=== PATIENT | male | born 1975 ===

== ENCOUNTER 2020-07-18 15:42 | Emergency (ER) | payer SELFPAY ==
--- NOTE | 2020-07-18 17:01 | EDM.PDOC ---
ED HPI GENERAL MEDICAL PROBLEM - General Chief Complaint: Respiratory Problem Stated Complaint: COVID+ CAN'T BREATHE Time Seen by Provider: 07/18/20 16:20 Source of Information: Reports: Patient, RN, RN Notes Reviewed History Limitations: Reports: No Limitations - History of Present Illness INITIAL COMMENTS - FREE TEXT/NARRATIVE: Patient presents to the ED via personal vehicle with complaints of shortness of breath and chest pain. The patient states he was diagnosed with COVID on 07/14/20 following symptoms of nausea and muscle aches that began on 07/13/20. He reports his additional COVID symptoms have included chills, headache, fatigue, cough, sore throat, and nausea. He states he grew concerned when he developed chest pain with breathing and subsequent shortness of breath yesterday. He states these symptoms have not progressed. The chest pain is localized and does not radiate. He denies dyspepsia, palpitations, vomiting, diarrhea, melena, or hematochezia. He states he has taken OTC medications for his muscles aches and cough. He reports a history of hypertension, but denies a history of respiratory disease. He denies alcohol, tobacco, or recreational drug use. - Related Data Allergies Allergy/AdvReac Type Severity Reaction Status Date / Time No Known Allergies Allergy Verified 07/18/20 16:08 Home Meds: Home Meds Aspirin [Halfprin] 81 mg PO DAILY 07/18/20 [History] Lisinopril/Hydrochlorothiazide [Lisinopril-HCTZ 10-12.5 MG] 1 tab PO DAILY 07/18/20 [History] Rosuvastatin [Crestor] 10 mg PO DAILY 07/18/20 [History] Past Medical History Cardiovascular History: Reports: Hypertension Social & Family History - Tobacco Use Tobacco Use Status *Q: Never Tobacco User Second Hand Smoke Exposure: No - Recreational Drug Use Recreational Drug Use: No ED ROS GENERAL - Review of Systems Review Of Systems: Comprehensive ROS is negative, except as noted in HPI. ED EXAM, GENERAL - Physical Exam Exam: See Below Exam Limited By: No Limitations General Appearance: Alert, No Apparent Distress Eye Exam: Bilateral Eye: EOMI, Normal Inspection, PERRL (4mm) Ears: Normal External Exam, Normal Canal, Hearing Grossly Normal, Normal TMs Ear Exam: Bilateral Ear: Auricle Normal, Canal Normal, TM normal Nose: Normal Inspection, Nasal Tenderness, Nasal Swelling, Nasal Drainage Throat/Mouth: Normal Inspection, Normal Voice, No Airway Compromise Respiratory/Chest: No Respiratory Distress, Lungs Clear, Normal Breath Sounds, No Accessory Muscle Use, Chest Non-Tender Cardiovascular: Normal Peripheral Pulses, Regular Rate, Rhythm, No Edema, No Gallop, No JVD, No Murmur, No Rub Peripheral Pulses: 2+: Radial (L), Radial (R), Dorsalis Pedis (L), Dorsalis Pedis (R) GI/Abdominal: Normal Bowel Sounds, Soft, Non-Tender, No Distention, No Mass, Pelvis Stable (Male) Exam: Deferred Rectal (Males) Exam: Deferred Back Exam: Normal Inspection, Full Range of Motion Extremities: Normal Inspection, Normal Range of Motion, Non-Tender, No Pedal Edema, Normal Capillary Refill Neurological: Alert, Oriented, CN II-XII Intact, Normal Cognition, Normal Gait, No Motor/Sensory Deficits Psychiatric: Normal Affect, Normal Mood Skin Exam: Warm, Dry, Intact, Normal Color, No Rash. No: Ecchymosis, Erythema, Jaundice, Mottled, Pallor, Petechiae #1 Interpretation EKG Date: 07/18/20 Time: 16:51 Rhythm: NSR Rate (Beats/Min): 81 [place]: Normal P-Wave: Present QRS: Normal ST-T: Normal QT: Normal Comparison: NA - No Prior EKG EKG Interpretation Comments: NSR; No evidence of acute ischemia Course - Vital Signs Last Recorded V/S: Last Vital Signs Temp 97.8 F 07/18/20 15:59 Pulse 99 07/18/20 15:59 Resp 18 07/18/20 15:59 BP 142/82 H 07/18/20 15:59 Pulse Ox 97 07/18/20 15:59 - Orders/Labs/Meds Orders: Active Orders 24 hr Category Date Time Status EKG Documentation Completion [RC] STAT Care 07/18/20 16:43 Active Labs: Laboratory Tests 07/18/20 07/18/20 07/18/20 Range/Units 17:02 17:02 17:02 WBC 4.5 L (5.0-10.0) 10^3/uL RBC 5.50 (4.6-6.2) 10^6/uL Hgb 16.5 (14.0-18.0) g/dL Hct 46.7 (40.0-54.0) % MCV 84.9 (80-100) fL MCH 30.0 (27.0-34.0) pg MCHC 35.3 H (33.0-35.0) g/dL Plt Count 159 (150-450) 10^3/uL Neut % (Auto) 70.7 (42.2-75.2) % Lymph % (Auto) 20.9 (20.5-50.1) % [place] % (Auto) 8.2 H (2-8) % Eos % (Auto) 0.2 L (1.0-3.0) % Baso % (Auto) 0.0 (0.0-1.0) % D-Dimer, Quantitative < 100 (0-400) ng/mL Sodium 141 (136-145) mmol/L Potassium 3.1 L (3.5-5.1) mmol/L Chloride 100 (98-107) mmol/L Carbon Dioxide 28 (21-32) mmol/L Anion Gap 16.1 H (7-13) mEq/L BUN 11 (7-18) mg/dL Creatinine 1.01 (0.70-1.30) mg/dL Est Cr Clr Drug Dosing 91.58 mL/min Estimated GFR (MDRD) > 60 BUN/Creatinine Ratio 10.9 (No establ ref range) Glucose 117 H (74-99) mg/dL Lactic Acid (0.4-2.0) mmol/L Calcium 9.1 (8.5-10.1) mg/dL Magnesium 2.1 (1.8-2.4) mg/dL Total Bilirubin 0.4 (0.2-1.0) mg/dL AST 27 (15-37) U/L ALT 63 (16-63) U/L Alkaline Phosphatase 97 (46-116) U/L Troponin I < 0.017 (0.000-0.056) ng/mL C-Reactive Protein 1.1 H (0.0-0.9) mg/dL Total Protein 8.2 (6.4-8.2) g/dL Albumin 4.1 (3.4-5.0) g/dL Globulin 4.1 Albumin/Globulin Ratio 1.0 /02/28 Range/Units 17:02 WBC (5.0-10.0) 10^3/uL RBC (4.6-6.2) 10^6/uL Hgb (14.0-18.0) g/dL Hct (40.0-54.0) % MCV (80-100) fL MCH (27.0-34.0) pg MCHC (33.0-35.0) g/dL Plt Count (150-450) 10^3/uL Neut % (Auto) (42.2-75.2) % Lymph % (Auto) (20.5-50.1) % [place] % (Auto) (2-8) % Eos % (Auto) (1.0-3.0) % Baso % (Auto) (0.0-1.0) % D-Dimer, Quantitative (0-400) ng/mL Sodium (136-145) mmol/L Potassium (3.5-5.1) mmol/L Chloride (98-107) mmol/L Carbon Dioxide (21-32) mmol/L Anion Gap (7-13) mEq/L BUN (7-18) mg/dL Creatinine (0.70-1.30) mg/dL Est Cr Clr Drug Dosing mL/min Estimated GFR (MDRD) BUN/Creatinine Ratio (No establ ref range) Glucose (74-99) mg/dL Lactic Acid 1.2 (0.4-2.0) mmol/L Calcium (8.5-10.1) mg/dL Magnesium (1.8-2.4) mg/dL Total Bilirubin (0.2-1.0) mg/dL AST (15-37) U/L ALT (16-63) U/L Alkaline Phosphatase (46-116) U/L Troponin I (0.000-0.056) ng/mL C-Reactive Protein (0.0-0.9) mg/dL Total Protein (6.4-8.2) g/dL Albumin (3.4-5.0) g/dL Globulin Albumin/Globulin Ratio - Radiology Interpretation Free Text/Narrative:: [facility] [place] [facility] Final Radiology Report Call: [phone] assistance Online chat: [email or web address] Name: VALERIA TATUM Age: 45Years M Date: 07/18/2020 SSN: -- : [id number] Study: CR CHEST 1V FRONTAL Requesting Physician: Kiarra Hawk Images: 1 Addl Studies: Provided Clinical History: Shortness of breath; COVID+ Contrast: Contrast Medium: Contrast Amount: Contrast Method: CONFIDENTIALITY STATEMENT This report is intended only for use by the referring physician, and only in accordance with law. If you received this in error, call [phone]. Page 1 of 1 PROCEDURE INFORMATION: Exam: XR Chest, 1 View Exam date and time: 07/18/2020 6:20 PM Age: 45 years old Clinical indication: Shortness of breath; Additional info: Shortness of breath; Covid+ TECHNIQUE: Imaging protocol: XR of the chest Views: 1 view. COMPARISON: No relevant prior studies available. FINDINGS: Lungs: Unremarkable. No consolidation. Pleural space: Unremarkable. No pleural effusion. No pneumothorax. Heart/Mediastinum: Unremarkable. No cardiomegaly. Bones/joints: Unremarkable. IMPRESSION: No acute findings. Thank you for allowing us to participate in the care of your patient. Dictated and Authenticated by: Cordell Robb DO 07/18/2020 6:41 PM Central Time ([place] & [place]) - Re-Assessments/Exams Free Text/Narrative Re-Assessment/Exam: 07/18/20 CBC and CMP unremarkable for acute processes. D-Dimer WNL. CXR unremarkable for acute processes. Will treat new onset shortness of breath empirically with dexamethasone and azithromycin. Departure - Departure Time of Disposition: 18:45 Disposition: Home, Self-Care 01 Condition: Good Clinical Impression: Shortness of breath, Pleurisy, COVID-19 virus infection - Discharge Information *PRESCRIPTION DRUG MONITORING PROGRAM REVIEWED*: Not Applicable *COPY OF PRESCRIPTION DRUG MONITORING REPORT IN PATIENT YENI: Not Applicable Instructions: COVID-19 Frequently Asked Questions, COVID-19: How to Protect Yourself and Others - CDC, Prevent the Spread of COVID-19 if You Are Sick - CDC Forms: ED Department Discharge Additional Instructions: Rx: Azithromycin Rx: Dexamethasone 1.) You may take acetaminophen (Tylenol) 650mg every six hours. You may take ibuprofen (Advil/Motrin) 400mg every six hours. You may stagger these medications so you are taking a dose of medicine every three hours. 2.) Drink plenty of fluids to stay hydrated. 3.) Eat small, frequent meals to avoid nausea. 4.) Continue to follow [facility] Department guidelines regarding quarantine. Sepsis Event Note (ED) - Evaluation Sepsis Screening Result: No Definite Risk - Focused Exam Vital Signs: Vital Signs Temp Pulse Resp BP Pulse Ox 07/18/20 15:59 97.8 F 99 18 142/82 H 97 - My Orders Last 24 Hours: My Active Orders 07/18/20 16:43 EKG Documentation Completion [RC] STAT - Assessment/Plan Last 24 Hours: My Active Orders 07/18/20 16:43 EKG Documentation Completion [RC] STAT
[2020-07-18 17:43] LABS: ANION GAP 16.1 mEq/L (7-13); CHLORIDE,CL 100 mmol/L (98-107); SODIUM,NA 141 mmol/L (136-145)
--- NOTE | 2020-07-18 18:42 | CR ---
PROCEDURE INFORMATION: Exam: XR Chest, 1 View Exam date and time: 07/18/2020 6:20 PM Age: 45 years old Clinical indication: Shortness of breath; Additional info: Shortness of breath; Covid+ TECHNIQUE: Imaging protocol: XR of the chest Views: 1 view. COMPARISON: No relevant prior studies available. FINDINGS: Lungs: Unremarkable. No consolidation. Pleural space: Unremarkable. No pleural effusion. No pneumothorax. Heart/Mediastinum: Unremarkable. No cardiomegaly. Bones/joints: Unremarkable. IMPRESSION: No acute findings.
[2020-07-18] MEDS ORDERED: Dexamethasone 4 MG/ML SDV IM ONE (18:48)
== END 2020-07-18 19:28 | disposition home or self-care (01) ==
LOC: DL.ED 15:42
DX: U07.1 COVID-19 (principal); R09.1 Pleurisy; I10 Essential (primary) hypertension; Z79.82 Long term (current) use of aspirin; Z79.899 Other long term (current) drug therapy
CPT/HCPCS: 36415; 71045; 80053; 83605; 83735; 84484; 85025; 85379; 86140; 93005; 93010; 96372; 99284; 99285; J1100

== ENCOUNTER 2020-07-22 15:31 | Emergency (ER) | payer SELFPAY ==
--- NOTE | 2020-07-22 16:20 | EDM.PDOC ---
<Marvin Tapia Chapito - Last Filed: 07/22/20 18:19> ED HPI GENERAL MEDICAL PROBLEM - General Chief Complaint: Respiratory Problem Stated Complaint: COVID+ DIFFICULTY BREATHING AND DIZZY Time Seen by Provider: 07/22/20 15:45 Source of Information: Reports: Patient History Limitations: Reports: No Limitations - History of Present Illness INITIAL COMMENTS - FREE TEXT/NARRATIVE: 45 y/o M c/o chest pressure and increased sob starting 11 pm yesterday. Pt was diagnosed with covid 8 days ago and was treated with dexamethasone and Zithromax. Yesterday while at rest the pt developed pressure in his left chest and increased sob. Denies mcgee, vision problems, abd pn, nausea, vomiting, diarrhea, drugs, etoh, extremity pain, recent trauma. Onset: Other (yesterday about 11 pm) Duration: Hour(s): Location: Reports: Chest Quality: Reports: Pressure Severity: Moderate Improves with: Reports: None Worsens with: Reports: Movement Associated Symptoms: Reports: No Other Symptoms - Related Data Allergies Allergy/AdvReac Type Severity Reaction Status Date / Time No Known Allergies Allergy Verified 07/22/20 15:44 Home Meds: Home Meds Aspirin [Halfprin] 81 mg PO DAILY 07/18/20 [History] Lisinopril/Hydrochlorothiazide [Lisinopril-HCTZ 10-12.5 MG] 1 tab PO DAILY 07/18/20 [History] Rosuvastatin [Crestor] 10 mg PO DAILY 07/18/20 [History] Past Medical History Cardiovascular History: Reports: High Cholesterol, Hypertension Social & Family History - Tobacco Use Tobacco Use Status *Q: Never Tobacco User - Recreational Drug Use Recreational Drug Use: No ED ROS GENERAL - Review of Systems Review Of Systems: Comprehensive ROS is negative, except as noted in HPI. ED EXAM, GENERAL - Physical Exam Exam: See Below Exam Limited By: No Limitations General Appearance: Alert, WD/WN, No Apparent Distress Eye Exam: Bilateral Eye: PERRL Ears: Normal External Exam, Normal Canal, Hearing Grossly Normal, Normal TMs Ear Exam: Bilateral Ear: Auricle Normal, Canal Normal, TM normal Nose: Normal Inspection, Normal Mucosa, No Blood Throat/Mouth: Normal Inspection, Normal Lips, Normal Teeth, Normal Gums, Normal Oropharynx, Normal Voice, No Airway Compromise Head: Atraumatic, Normocephalic Neck: Normal Inspection, Supple, Non-Tender, Full Range of Motion Respiratory/Chest: Lungs Clear, Other (tachypnea ) Cardiovascular: Normal Peripheral Pulses, Regular Rate, Rhythm, No Edema, No Gallop, No JVD, No Murmur, No Rub GI/Abdominal: Soft, Non-Tender (Male) Exam: Deferred Rectal (Males) Exam: Deferred Extremities: Normal Inspection, Normal Range of Motion, Non-Tender, Normal Capillary Refill, No Pedal Edema Neurological: Alert, Oriented, CN II-XII Intact, Normal Cognition, Normal Gait, Normal Reflexes, No Motor/Sensory Deficits Psychiatric: Normal Affect, Normal Mood Skin Exam: Warm, Dry, Intact, Normal Color, No Rash Departure - Departure Disposition: Home, Self-Care 01 Clinical Impression: COVID-19 virus infection - Discharge Information Instructions: Shortness of Breath, Adult, [id number], COVID-19 Forms: ED Department Discharge Additional Instructions: Use Albuterol Inhaler 2 puffs every 4 hours as needed. Over the counter Vitamin D supplement (D3): Take 4000 or 5000IU by mouth once daily with a meal. Check your vitamin D lab level in one month. Rx: Promethazine Codeine Syrup Sepsis Event Note (ED) - Evaluation Sepsis Screening Result: No Definite Risk <Ike De Guzman - Last Filed: 07/22/20 18:22> Course - Vital Signs Last Recorded V/S: Last Vital Signs Temp 98.5 F 07/22/20 15:53 Pulse 97 07/22/20 15:53 Resp 16 07/22/20 15:53 BP 152/85 H 07/22/20 15:53 Pulse Ox 96 07/22/20 15:53 - Orders/Labs/Meds Orders: Active Orders 24 hr Category Date Time Status EKG Documentation Completion [RC] STAT Care 07/22/20 16:23 Active Peripheral IV Care [RC] . DIRECTED Care 07/22/20 16:24 Active Sodium Chloride 0.9% [Saline Flush] Med 07/22/20 16:22 Active 10 ml FLUSH ASDIRECTED PRN Peripheral IV Insertion Adult [OM.PC] Stat Oth 07/22/20 16:22 Ordered Medication Orders Sodium Chloride (Saline Flush) 10 ml FLUSH ASDIRECTED PRN PRN Reason: Keep Vein Open Last Admin: 07/22/20 16:46 Dose: 10 ml Documented by: LEO Labs: Laboratory Tests 07/22/20 07/22/20 07/22/20 Range/Units 16:44 16:44 16:44 WBC 9.7 (5.0-10.0) 10^3/uL RBC 5.58 (4.6-6.2) 10^6/uL Hgb 16.4 (14.0-18.0) g/dL Hct 46.5 (40.0-54.0) % MCV 83.3 (80-100) fL MCH 29.4 (27.0-34.0) pg MCHC 35.3 H (33.0-35.0) g/dL Plt Count 216 (150-450) 10^3/uL Neut % (Auto) 90.3 H (42.2-75.2) % Lymph % (Auto) 6.4 L (20.5-50.1) % [place] % (Auto) 2.8 (2-8) % Eos % (Auto) 0.1 L (1.0-3.0) % Baso % (Auto) 0.4 (0.0-1.0) % PT 10.3 (9.0-12.0) SEC INR 1.1 (0.9-1.2) APTT 21.4 L (22.0-34.0) SEC D-Dimer, Quantitative 138 (0-400) ng/mL Sodium 139 (136-145) mmol/L Potassium 3.2 L (3.5-5.1) mmol/L Chloride 98 (98-107) mmol/L Carbon Dioxide 28 (21-32) mmol/L Anion Gap 16.2 H (7-13) mEq/L BUN 13 (7-18) mg/dL Creatinine 1.06 (0.70-1.30) mg/dL Est Cr Clr Drug Dosing 89.86 mL/min Estimated GFR (MDRD) > 60 BUN/Creatinine Ratio 12.3 (No establ ref range) Glucose 180 H (74-99) mg/dL Calcium 9.3 (8.5-10.1) mg/dL Ferritin (26-388) mg/mL Total Bilirubin 0.3 (0.2-1.0) mg/dL AST 19 (15-37) U/L ALT 71 H (16-63) U/L Alkaline Phosphatase 87 (46-116) U/L Lactate Dehydrogenase 129 (85-227) U/L Troponin I < 0.017 (0.000-0.056) ng/mL C-Reactive Protein < 0.2 (0.0-0.9) mg/dL Total Protein 8.3 H (6.4-8.2) g/dL Albumin 4.2 (3.4-5.0) g/dL Globulin 4.1 Albumin/Globulin Ratio 1.0 07/22/20 Range/Units 16:44 WBC (5.0-10.0) 10^3/uL RBC (4.6-6.2) 10^6/uL Hgb (14.0-18.0) g/dL Hct (40.0-54.0) % MCV (80-100) fL MCH (27.0-34.0) pg MCHC (33.0-35.0) g/dL Plt Count (150-450) 10^3/uL Neut % (Auto) (42.2-75.2) % Lymph % (Auto) (20.5-50.1) % [place] % (Auto) (2-8) % Eos % (Auto) (1.0-3.0) % Baso % (Auto) (0.0-1.0) % PT (9.0-12.0) SEC INR (0.9-1.2) APTT (22.0-34.0) SEC D-Dimer, Quantitative (0-400) ng/mL Sodium (136-145) mmol/L Potassium (3.5-5.1) mmol/L Chloride (98-107) mmol/L Carbon Dioxide (21-32) mmol/L Anion Gap (7-13) mEq/L BUN (7-18) mg/dL Creatinine (0.70-1.30) mg/dL Est Cr Clr Drug Dosing mL/min Estimated GFR (MDRD) BUN/Creatinine Ratio (No establ ref range) Glucose (74-99) mg/dL Calcium (8.5-10.1) mg/dL Ferritin 133 (26-388) mg/mL Total Bilirubin (0.2-1.0) mg/dL AST (15-37) U/L ALT (16-63) U/L Alkaline Phosphatase (46-116) U/L Lactate Dehydrogenase (85-227) U/L Troponin I (0.000-0.056) ng/mL C-Reactive Protein (0.0-0.9) mg/dL Total Protein (6.4-8.2) g/dL Albumin (3.4-5.0) g/dL Globulin Albumin/Globulin Ratio Meds: Medications Generic Name Dose Route Start Last Admin Trade Name Freq PRN Reason Stop Dose Admin Sodium Chloride 10 ml 07/22/20 16:22 07/22/20 16:46 Saline Flush FLUSH 10 ml ASDIRECTED PRN Administration Keep Vein Open Discontinued Medications Generic Name Dose Route Start Last Admin Trade Name Freq PRN Reason Stop Dose Admin Albuterol 6.7 gm 07/22/20 18:16 Proventil Hfa INH 07/22/20 18:17 ONETIME ONE Promethazine HCl/Codeine 10 ml 07/22/20 18:16 Phenergan With Codeine PO 07/22/20 18:17 ONETIME ONE - Radiology Interpretation Free Text/Narrative:: CT Chest: normal per Rad. report. - Re-Assessments/Exams Free Text/Narrative Re-Assessment/Exam: 07/22/20 17:09 I personally performed or re-performed the physical examination and medical decision making. I have verified all student documentation or findings, including history, physical exam and/or medical decision making. Departure - Departure Time of Disposition: 18:17 Condition: Good - Discharge Information *PRESCRIPTION DRUG MONITORING PROGRAM REVIEWED*: Not Applicable *COPY OF PRESCRIPTION DRUG MONITORING REPORT IN PATIENT YENI: Not Applicable Sepsis Event Note (ED) - Focused Exam Vital Signs: Vital Signs Temp Pulse Resp BP Pulse Ox 07/22/20 15:53 98.5 F 97 16 152/85 H 96
[2020-07-22] MEDS ORDERED: Sodium Chloride 0.9% 10 ML Syringe FLUSH PRN (16:22)
[2020-07-22 17:13] LABS: ANION GAP 16.2 mEq/L (7-13); CHLORIDE,CL 98 mmol/L (98-107); SODIUM,NA 139 mmol/L (136-145)
[2020-07-22 17:14] LABS: PTT,PARTIAL THROMBOPLSTIN TIME 21.4 SEC (22.0-34.0)
--- NOTE | 2020-07-22 18:00 | CT ---
PROCEDURE INFORMATION: Exam: CT Chest Without Contrast; Diagnostic Exam date and time: 07/22/2020 5:33 PM Age: 45 years old Clinical indication: Other: Increased chest pressure TECHNIQUE: Imaging protocol: Diagnostic computed tomography of the chest without contrast. Radiation optimization: All CT scans at this facility use at least one of these dose optimization techniques: automated exposure control; mA and/or kV adjustment per patient size (includes targeted exams where dose is matched to clinical indication); or iterative reconstruction. COMPARISON: CR Chest 1V Frontal 07/18/2020 6:20 PM FINDINGS: Lungs: Unremarkable. No consolidation. No masses. Pleural space: Unremarkable. No pneumothorax. No pleural effusion. Heart: Unremarkable. No cardiomegaly. No pericardial effusion. Aorta: Unremarkable. No aortic aneurysm. Lymph nodes: Unremarkable. No enlarged lymph nodes. Bones/joints: Unremarkable. No acute fracture. Soft tissues: Nonspecific calcification or small calcific lesion in the left kidney of uncertain etiology. IMPRESSION: No acute cardiopulmonary findings. Incompletely visualized left renal calcification of uncertain etiology.
[2020-07-22] MEDS ORDERED: Codeine/Promethazine 10-6.25 MG/5 ML Syrup 5 ML UD Cup PO ONE (18:16)
[2020-07-22] MEDS ORDERED: Albuterol 6.7 GM Inhaler INH ONE (18:16)
== END 2020-07-22 18:32 | disposition home or self-care (01) ==
LOC: DL.ED 15:31
DX: U07.1 COVID-19 (principal); E78.00 Pure hypercholesterolemia, unspecified; I10 Essential (primary) hypertension; Z79.82 Long term (current) use of aspirin; Z79.899 Other long term (current) drug therapy
CPT/HCPCS: 36415; 71250; 80053; 82728; 83615; 84484; 85025; 85379; 85610; 85730; 86140; 93005; 99283; 99285; A9270

== ENCOUNTER 2020-07-24 15:21 | Inpatient (IN) | payer OTHER ==
--- NOTE | 2020-07-24 16:19 | EDM.PDOC ---
ED HPI GENERAL MEDICAL PROBLEM - General Chief Complaint: General Stated Complaint: COVID POSSITIVE, TESTED 13 DAYS AGO. Time Seen by Provider: 07/24/20 16:00 Source of Information: Reports: Patient, Old Records, RN, RN Notes Reviewed History Limitations: Reports: No Limitations - History of Present Illness INITIAL COMMENTS - FREE TEXT/NARRATIVE: Patient presents to the ED via personal vehicle with complaints of shortness of breath and chest pain. The was diagnosed with COVID on 07/14/20 following symptoms of muscle aches and fatigue; he subsequently developed shortness of br eath and chest pain which prompted him to present to this ED on 07/18/20 and 07/22/20. The patient has been treated with Dexamethasone, Azithromycin, Phenergan with Codeine, and an Albuterol MDI. He states the pain in his chest and back continues, as well as the fatigue, muscle aches, and cough. He states he is concerned as he has not improved despite supportive cares and reported he "...just wants to slit my wrists." The patient states he has not eaten or drank fluids in >24hrs. He denies fever, shaking chills, vision changes, palpitations, dyspepsia, nausea, abdominal pain, vomiting, diarrhea, melena, or hematochezia. Left Chest Pain Score (Numeric/FACES): 10 - Related Data Allergies Allergy/AdvReac Type Severity Reaction Status Date / Time No Known Allergies Allergy Verified 07/24/20 15:57 Home Meds: Home Meds Aspirin [Halfprin] 81 mg PO DAILY 07/18/20 [History] Lisinopril/Hydrochlorothiazide [Lisinopril-HCTZ 10-12.5 MG] 1 tab PO DAILY 07/18/20 [History] Rosuvastatin [Crestor] 10 mg PO DAILY 07/18/20 [History] Albuterol [Take Home: Albuterol 18 GM, 1 INH Pack] 2 puff INH Q4H PRN 07/24/20 [History] Azithromycin 500 mg PO DAILY 07/24/20 [History] Doxycycline [Doxycycline Hyclate] 100 mg PO BID 07/24/20 [History] predniSONE [Prednisone] 20 mg PO DAILY 07/24/20 [History] Past Medical History - Past Health History Medical/Surgical History: Denies Medical/Surgical History Cardiovascular History: Reports: High Cholesterol, Hypertension Social & Family History - Tobacco Use Tobacco Use Status *Q: Never Tobacco User - Recreational Drug Use Recreational Drug Use: No ED ROS GENERAL - Review of Systems Review Of Systems: Comprehensive ROS is negative, except as noted in HPI. ED EXAM, GENERAL - Physical Exam Exam: See Below Exam Limited By: No Limitations General Appearance: Alert, No Apparent Distress, Thin Eye Exam: Bilateral Eye: EOMI, Normal Inspection, PERRL (3mm) Ears: Normal External Exam, Normal Canal, Hearing Grossly Normal, Normal TMs Ear Exam: Bilateral Ear: Auricle Normal, Canal Normal, TM normal Nose: Normal Inspection. No: Nasal Tenderness, Nasal Swelling, Nasal Drainage Throat/Mouth: Normal Inspection, Normal Lips, Normal Teeth, Normal Gums, Normal Voice, No Airway Compromise Head: Atraumatic, Normocephalic Neck: Normal Inspection, Supple, Non-Tender, Full Range of Motion. No: Lymphad enopathy (L), Lymphadenopathy (R) Respiratory/Chest: No Respiratory Distress, Lungs Clear, Normal Breath Sounds, Chest Non-Tender, Accessory Muscle Use. No: Crackles, Rales, Rhonchi, Wheezing, Stridor, Pleural Rub Cardiovascular: Normal Peripheral Pulses, Regular Rate, Rhythm, No Edema, No Gallop, No JVD, No Murmur, No Rub Peripheral Pulses: 2+: Radial (L), Radial (R), Dorsalis Pedis (L), Dorsalis Pedis (R) GI/Abdominal: Normal Bowel Sounds, Soft, Non-Tender, No Distention, No Mass, Pelvis Stable (Male) Exam: Deferred Rectal (Males) Exam: Deferred Back Exam: Normal Inspection, Full Range of Motion. No: CVA Tenderness (L), CVA Tenderness (R) Extremities: Normal Inspection, Normal Range of Motion, Non-Tender, Normal Capillary Refill, No Pedal Edema Neurological: Alert, Oriented, CN II-XII Intact, Normal Cognition, Normal Gait, No Motor/Sensory Deficits Psychiatric: Depressed Mood, Flat Affect Skin Exam: Warm, Dry, Intact, Normal Color, No Rash. No: Ecchymosis, Erythema, Jaundice, Mottled, Pallor, Petechiae Course - Vital Signs Last Recorded V/S: Last Vital Signs Temp 100.5 F 07/25/20 11:14 Pulse 72 07/25/20 11:14 Resp 20 07/25/20 11:14 BP 124/72 07/25/20 11:14 Pulse Ox 99 07/25/20 11:14 - Orders/Labs/Meds Orders: Medication Orders Acetaminophen (Tylenol) 650 mg PO Q4H PRN PRN Reason: Pain (Mild 1-3)/fever Dexamethasone (Decadron) 6 mg IVPUSH DAILY@1999 [facility] Last Admin: 07/24/20 20:52 Dose: 6 mg Documented by: DEZ Docusate Sodium (Colace) 100 mg PO BID PRN PRN Reason: Constipation Heparin Sodium (Porcine) (Heparin Sodium) 5,000 units SUBCUT Q8HR [facility] Last Admin: 07/25/20 04:59 Dose: 5,000 units Documented by: Admin: 07/24/20 21:54 Dose: 5,000 units Documented by: DEZ Potassium Chloride/Sodium Chloride (Normal Saline With 20 Meq Kcl) 1,000 mls @ 150 mls/hr IV ASDIRECTED [facility] Last Admin: 07/25/20 08:30 Dose: 150 mls/hr Documented by: KARON Remdesivir 200 mg/ Sodium (Chloride) 250 mls @ 250 mls/hr IV ONETIME ONE Stop: 07/25/20 13:59 Remdesivir 100 mg/ Sodium (Chloride) 100 mls @ 100 mls/hr IV Q24H [facility] Stop: 07/29/20 09:59 Influenza Virus Vaccine (Pharmacy To Dose - Influenza Vaccine) 1 each IM DAILY PRN PRN Reason: discharge Lorazepam (Ativan) 1 mg PO Q6H PRN PRN Reason: Anxiety Ondansetron HCl (Zofran Odt) 4 mg PO Q6H PRN PRN Reason: nausea, able to take PO Ondansetron HCl (Zofran) 4 mg IVPUSH Q6H PRN PRN Reason: Nausea/Vomiting Sodium Chloride (Saline Flush) 10 ml FLUSH ASDIRECTED PRN PRN Reason: Keep Vein Open Sodium Chloride (Saline Flush) 30 ml FLUSH DAILY PRN PRN Reason: Flush Zolpidem Tartrate (Ambien) 5 mg PO BEDTIME PRN PRN Reason: Sleep Labs: Laboratory Tests 07/24/20 07/24/20 07/24/20 Range/Units 16:22 16:22 16:22 WBC 9.6 (5.0-10.0) 10^3/uL RBC 5.18 (4.6-6.2) 10^6/uL Hgb 15.5 (14.0-18.0) g/dL Hct 43.2 (40.0-54.0) % MCV 83.4 (80-100) fL MCH 29.9 (27.0-34.0) pg MCHC 35.9 H (33.0-35.0) g/dL Plt Count 207 (150-450) 10^3/uL Neut % (Auto) 90.1 H (42.2-75.2) % Lymph % (Auto) 5.3 L (20.5-50.1) % [place] % (Auto) 4.4 (2-8) % Eos % (Auto) 0.0 L (1.0-3.0) % Baso % (Auto) 0.2 (0.0-1.0) % Add Manual Diff Yes Neutrophils % (Manual) 82 H (42-75) % Band Neutrophils % 2 % Lymphocytes % (Manual) 10 L (20-50) % Monocytes % (Manual) 6 (2-8) % PT 10.8 (9.0-12.0) SEC INR 1.1 (0.9-1.2) APTT 22.3 (22.0-34.0) SEC D-Dimer, Quantitative 582 H (0-400) ng/mL Sodium 138 (136-145) mmol/L Potassium 2.9 L (3.5-5.1) mmol/L Chloride 100 (98-107) mmol/L Carbon Dioxide 24 (21-32) mmol/L Anion Gap 16.9 H (7-13) mEq/L BUN 15 (7-18) mg/dL Creatinine 1.14 (0.70-1.30) mg/dL Est Cr Clr Drug Dosing 83.55 mL/min Estimated GFR (MDRD) > 60 BUN/Creatinine Ratio 13.2 (No establ ref range) Glucose 166 H (74-99) mg/dL Lactic Acid (0.4-2.0) mmol/L Calcium 8.8 (8.5-10.1) mg/dL Magnesium 1.8 (1.8-2.4) mg/dL Total Bilirubin 0.4 (0.2-1.0) mg/dL AST 33 (15-37) U/L ALT 86 H (16-63) U/L Alkaline Phosphatase 82 (46-116) U/L Troponin I < 0.017 (0.000-0.056) ng/mL C-Reactive Protein 0.2 (0.0-0.9) mg/dL Total Protein 7.1 (6.4-8.2) g/dL Albumin 3.7 (3.4-5.0) g/dL Globulin 3.4 Albumin/Globulin Ratio 1.1 TSH, Ultra Sensitive (0.36-3.74) uIU/mL Urine Color (YELLOW) Urine Appearance (CLEAR) Urine pH (5.0-9.0) Ur Specific [place] (1.005-1.030) Urine Protein (NEGATIVE) Urine Glucose (UA) (NEGATIVE) Urine Ketones (NEGATIVE) Urine Occult Blood (NEGATIVE) Urine Nitrite (NEGATIVE) Urine Bilirubin (NEGATIVE) Urine Urobilinogen (0.2-1.0) mg/dL Ur Leukocyte Esterase (NEGATIVE) 07/24/20 07/24/20 07/24/20 Range/Units 16:22 16:22 16:43 WBC (5.0-10.0) 10^3/uL RBC (4.6-6.2) 10^6/uL Hgb (14.0-18.0) g/dL Hct (40.0-54.0) % MCV (80-100) fL MCH (27.0-34.0) pg MCHC (33.0-35.0) g/dL Plt Count (150-450) 10^3/uL Neut % (Auto) (42.2-75.2) % Lymph % (Auto) (20.5-50.1) % [place] % (Auto) (2-8) % Eos % (Auto) (1.0-3.0) % Baso % (Auto) (0.0-1.0) % Add Manual Diff Neutrophils % (Manual) (42-75) % Band Neutrophils % % Lymphocytes % (Manual) (20-50) % Monocytes % (Manual) (2-8) % PT (9.0-12.0) SEC INR (0.9-1.2) APTT (22.0-34.0) SEC D-Dimer, Quantitative (0-400) ng/mL Sodium (136-145) mmol/L Potassium (3.5-5.1) mmol/L Chloride (98-107) mmol/L Carbon Dioxide (21-32) mmol/L Anion Gap (7-13) mEq/L BUN (7-18) mg/dL Creatinine (0.70-1.30) mg/dL Est Cr Clr Drug Dosing mL/min Estimated GFR (MDRD) BUN/Creatinine Ratio (No establ ref range) Glucose (74-99) mg/dL Lactic Acid 3.9 H* (0.4-2.0) mmol/L Calcium (8.5-10.1) mg/dL Magnesium (1.8-2.4) mg/dL Total Bilirubin (0.2-1.0) mg/dL AST (15-37) U/L ALT (16-63) U/L Alkaline Phosphatase (46-116) U/L Troponin I (0.000-0.056) ng/mL C-Reactive Protein (0.0-0.9) mg/dL Total Protein (6.4-8.2) g/dL Albumin (3.4-5.0) g/dL Globulin Albumin/Globulin Ratio TSH, Ultra Sensitive 2.36 (0.36-3.74) uIU/mL Urine Color Yellow (YELLOW) Urine Appearance Clear (CLEAR) Urine pH 7.5 (5.0-9.0) Ur Specific [place] 1.020 (1.005-1.030) Urine Protein Negative (NEGATIVE) Urine Glucose (UA) Negative (NEGATIVE) Urine Ketones Negative (NEGATIVE) Urine Occult Blood Negative (NEGATIVE) Urine Nitrite Negative (NEGATIVE) Urine Bilirubin Negative (NEGATIVE) Urine Urobilinogen 0.2 (0.2-1.0) mg/dL Ur Leukocyte Esterase Negative (NEGATIVE) Meds: Medications Generic Name Dose Route Start Last Admin Trade Name Freq PRN Reason Stop Dose Admin Acetaminophen 650 mg 07/24/20 19:10 Tylenol PO Q4H PRN Pain (Mild 1-3)/fever Dexamethasone 6 mg 07/24/20 20:00 07/24/20 20:52 Decadron IVPUSH 6 mg DAILY@1999 JU[facility] PABLO Administration Docusate Sodium 100 mg 07/24/20 19:10 Colace PO BID PRN Constipation Heparin Sodium (Porcine) 5,000 units 07/24/20 22:00 07/25/20 04:59 Heparin Sodium SUBCUT 5,000 units Q8HR JUAN PABLO Administration Potassium Chloride/Sodium Chloride 1,000 mls @ 150 mls/hr 07/25/20 06:30 07/25/20 08:30 Normal Saline With 20 Meq Kcl IV 150 mls/hr ASDIRECTED JUAN PABLO Administration Remdesivir 200 mg/ Sodium 250 mls @ 250 mls/hr 07/25/20 13:00 Chloride IV 07/25/20 13:59 ONETIME ONE Remdesivir 100 mg/ Sodium 100 mls @ 100 mls/hr 07/26/20 09:00 Chloride IV 07/29/20 09:59 Q24H [facility] Influenza Virus Vaccine 1 each 07/24/20 18:10 Pharmacy To Dose - Influenza Vaccine IM DAILY PRN discharge Lorazepam 1 mg 07/24/20 18:47 Ativan PO Q6H PRN Anxiety Ondansetron HCl 4 mg 07/24/20 19:10 Zofran Odt PO Q6H PRN nausea, able to take PO Ondansetron HCl 4 mg 07/24/20 19:10 Zofran IVPUSH Q6H PRN Nausea/Vomiting Sodium Chloride 10 ml 07/24/20 19:10 Saline Flush FLUSH ASDIRECTED PRN Keep Vein Open Sodium Chloride 30 ml 07/25/20 14:00 Saline Flush FLUSH DAILY PRN Flush Zolpidem Tartrate 5 mg 07/24/20 19:10 Ambien PO BEDTIME PRN Sleep Discontinued Medications Generic Name Dose Route Start Last Admin Trade Name Freq PRN Reason Stop Dose Admin Potassium Chloride 10 meq/ 100 mls @ 100 mls/hr 07/24/20 17:22 07/24/20 18:33 Premix IV 07/24/20 18:21 100 mls/hr ONETIME ONE Administration Sodium Chloride 1,000 mls @ 125 mls/hr 07/24/20 17:24 07/25/20 02:38 Normal Saline IV 07/25/20 01:23 Infused .BOLUS ONE Infusion Potassium Chloride 10 meq/ 100 mls @ 100 mls/hr 07/24/20 19:30 07/25/20 06:40 Premix IV 07/25/20 06:29 75 mls/hr Q2H JUAN PABLO Administration Remdesivir 100 mg/ Sodium 100 mls @ 100 mls/hr 07/26/20 09:00 Chloride IV 07/29/20 09:59 Q24H [facility] PABLO Iopamidol 100 ml 07/24/20 19:06 07/24/20 19:23 [id number] (76%) IVPUSH 07/24/20 19:07 100 ml ONETIME ONE Administration - Re-Assessments/Exams Free Text/Narrative Re-Assessment/Exam: 07/25/20 Lactic acid 3.9, Potassium 2.9, D-dimer 557. Lab values discussed with patient. Case discussed with Dr. Zapata who kindly agreed to accept patient for admission to observation for hypokalemia. Patient verbalized understanding and agreement with the plan of care. Departure - Departure Time of Disposition: 18:07 Disposition: Refer to Observation Condition: Good Clinical Impression: Hypokalemia, Lactic acidosis, History of COVID-19, Pleurisy - Discharge Information Sepsis Event Note (ED) - Evaluation Sepsis Screening Result: No Definite Risk
[2020-07-24 17:02] LABS: ANION GAP 16.9 mEq/L (7-13); CHLORIDE,CL 100 mmol/L (98-107); SODIUM,NA 138 mmol/L (136-145)
[2020-07-24 17:03] LABS: PTT,PARTIAL THROMBOPLSTIN TIME 22.3 SEC (22.0-34.0)
[2020-07-24] MEDS ORDERED: Potassium Chloride 10 MEQ in Premix Bag 1 BAG IV ONE (17:22)
[2020-07-24] MEDS ORDERED: Sodium Chloride 0.9% 1,000 ML IV ONE (17:24)
[2020-07-24] MEDS ORDERED: Iopamidol 755 Mg/ML 100 ML Bottle IVPUSH ONE (19:06)
[2020-07-24] MEDS ORDERED: Docusate Sodium 100 MG Cap PO PRN (19:10)
[2020-07-24] MEDS ORDERED: Ondansetron 4 MG/2 ML SDV IVPUSH PRN (19:10)
[2020-07-24] MEDS ORDERED: Acetaminophen 325 MG Tab PO PRN (19:10)
[2020-07-24] MEDS ORDERED: Ondansetron 4 MG Tab.DIS PO PRN (19:10)
--- NOTE | 2020-07-24 19:24 | PCM.HP ---
H&P History of Present Illness - General Date of Service: 07/24/20 Admit Problem/Dx: Admission Diagnosis/Problem Admission Diagnosis/Problem Hypokalemia Source of Information: Patient, Provider - History of Present Illness Initial Comments - Free Text/Narative: 45-year-old gentleman with a history of hypertension. He has no chronic lung disease, no diabetes. 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 he was getting chills on the july. Tested positive on 14 July for Covid 19 he did fairly well until about 7 or 8 days into his disease. Then he was getting short of breath. Went to the emergency room. Was started on dexamethasone. He finished dexamethasone a few days prior to this admission. Since he did not improve he took 20 mg prednisone that he got from a friend. in the past few days has been feeling more and more tired, no appetite. Chest pressure on the left side. No syncopal but feels very weak. No diarrhea, no abdominal pain he denies suicidal thoughts but he is concerned that the he is not doing well and cannot continue like this any longer. he is living independently. He has not been working in the past few days due to weakness Left Chest Pain Score (Numeric/FACES): 10 - Related Data Allergies/Adverse Reactions: Allergies Allergy/AdvReac Type Severity Reaction Status Date / Time No Known Allergies Allergy Verified 07/24/20 15:57 Home Medications: Home Meds Aspirin [Halfprin] 81 mg PO DAILY 07/18/20 [History] Lisinopril/Hydrochlorothiazide [Lisinopril-HCTZ 10-12.5 MG] 1 tab PO DAILY 07/18/20 [History] Rosuvastatin [Crestor] 10 mg PO DAILY 07/18/20 [History] Albuterol [Take Home: Albuterol 18 GM, 1 INH Pack] 2 puff INH Q4H PRN 07/24/20 [History] Azithromycin 500 mg PO DAILY 07/24/20 [History] Doxycycline [Doxycycline Hyclate] 100 mg PO BID 07/24/20 [History] predniSONE [Prednisone] 20 mg PO DAILY 07/24/20 [History] Past Medical History - Past Health History Medical/Surgical History: Denies Medical/Surgical History HEENT History: Reports: Other (See Below) Other HEENT History: wears glasses Cardiovascular History: Reports: High Cholesterol, Hypertension Respiratory History: Reports: None Gastrointestinal History: Reports: None Genitourinary History: Reports: None Musculoskeletal History: Reports: None Neurological History: Reports: None Psychiatric History: Reports: None Endocrine/Metabolic History: Reports: None Hematologic History: Reports: None Dermatologic History: Reports: None - Infectious Disease History Infectious Disease History: Reports: Chicken Pox, Novel Coronavirus - Past Surgical History GI Surgical History: Reports: None Social & Family History - Family History Family Medical History: No Pertinent Family History - Tobacco Use Tobacco Use Status *Q: Never Tobacco User Second Hand Smoke Exposure: No - Recreational Drug Use Recreational Drug Use: No H&P Review of Systems - Review of Systems: Review Of Systems: See Below General: Reports: Malaise, Weakness, Fatigue, Decreased Appetite. Denies: Fever, Chills Pulmonary: Reports: Shortness of Breath, Other. Denies: Wheezing, Pleuritic Chest Pain Cardiovascular: Reports: Dyspnea on Exertion, Other (left-sided chest pressure). Denies: Syncope Gastrointestinal: Reports: Nausea. Denies: Abdominal Pain, Black Stool, Bloody Stool, Distension, Melena, Vomiting Psychiatric: Reports: Confusion (feels he is confused some), Anxiety Exam - Exam Exam: See Below - Vital Signs Vital Signs: Last Vital Signs Temp 99.2 F 07/24/20 18:01 Pulse 69 07/24/20 18:01 Resp 20 07/24/20 18:01 BP 135/94 H 07/24/20 18:01 Pulse Ox 100 07/24/20 18:01 Weight: 156 lb - Exam Quality Assessment: No: Supplemental Oxygen General: Alert, Oriented Neck: Supple Lungs: Clear to Auscultation, Normal Respiratory Effort. No: Decreased Breath Sounds, Wheezing Cardiovascular: Regular Rate, Regular Rhythm. No: Tachycardia GI/Abdominal Exam: Normal Bowel Sounds, Soft, Non-Tender Extremities: No Pedal Edema - Patient Data Lab Results Last 24 hrs: Laboratory Results - last 24 hr 07/24/20 07/24/20 07/24/20 Range/Units 16:22 16:22 16:22 WBC 9.6 (5.0-10.0) 10^3/uL RBC 5.18 (4.6-6.2) 10^6/uL Hgb 15.5 (14.0-18.0) g/dL Hct 43.2 (40.0-54.0) % MCV 83.4 (80-100) fL MCH 29.9 (27.0-34.0) pg MCHC 35.9 H (33.0-35.0) g/dL Plt Count 207 (150-450) 10^3/uL Neut % (Auto) 90.1 H (42.2-75.2) % Lymph % (Auto) 5.3 L (20.5-50.1) % [place] % (Auto) 4.4 (2-8) % Eos % (Auto) 0.0 L (1.0-3.0) % Baso % (Auto) 0.2 (0.0-1.0) % Add Manual Diff Yes Neutrophils % (Manual) 82 H (42-75) % Band Neutrophils % 2 % Lymphocytes % (Manual) 10 L (20-50) % Monocytes % (Manual) 6 (2-8) % PT 10.8 (9.0-12.0) SEC INR 1.1 (0.9-1.2) APTT 22.3 (22.0-34.0) SEC D-Dimer, Quantitative 582 H (0-400) ng/mL Sodium 138 (136-145) mmol/L Potassium 2.9 L (3.5-5.1) mmol/L Chloride 100 (98-107) mmol/L Carbon Dioxide 24 (21-32) mmol/L Anion Gap 16.9 H (7-13) mEq/L BUN 15 (7-18) mg/dL Creatinine 1.14 (0.70-1.30) mg/dL Est Cr Clr Drug Dosing 83.55 mL/min Estimated GFR (MDRD) > 60 BUN/Creatinine Ratio 13.2 (No establ ref range) Glucose 166 H (74-99) mg/dL Lactic Acid (0.4-2.0) mmol/L Calcium 8.8 (8.5-10.1) mg/dL Magnesium 1.8 (1.8-2.4) mg/dL Total Bilirubin 0.4 (0.2-1.0) mg/dL AST 33 (15-37) U/L ALT 86 H (16-63) U/L Alkaline Phosphatase 82 (46-116) U/L Troponin I < 0.017 (0.000-0.056) ng/mL C-Reactive Protein 0.2 (0.0-0.9) mg/dL Total Protein 7.1 (6.4-8.2) g/dL Albumin 3.7 (3.4-5.0) g/dL Globulin 3.4 Albumin/Globulin Ratio 1.1 Urine Color (YELLOW) Urine Appearance (CLEAR) Urine pH (5.0-9.0) Ur Specific [place] (1.005-1.030) Urine Protein (NEGATIVE) Urine Glucose (UA) (NEGATIVE) Urine Ketones (NEGATIVE) Urine Occult Blood (NEGATIVE) Urine Nitrite (NEGATIVE) Urine Bilirubin (NEGATIVE) Urine Urobilinogen (0.2-1.0) mg/dL Ur Leukocyte Esterase (NEGATIVE) 07/24/20 07/24/20 Range/Units 16:22 16:43 WBC (5.0-10.0) 10^3/uL RBC (4.6-6.2) 10^6/uL Hgb (14.0-18.0) g/dL Hct (40.0-54.0) % MCV (80-100) fL MCH (27.0-34.0) pg MCHC (33.0-35.0) g/dL Plt Count (150-450) 10^3/uL Neut % (Auto) (42.2-75.2) % Lymph % (Auto) (20.5-50.1) % Davidson % (Auto) (2-8) % Eos % (Auto) (1.0-3.0) % Baso % (Auto) (0.0-1.0) % Add Manual Diff Neutrophils % (Manual) (42-75) % Band Neutrophils % % Lymphocytes % (Manual) (20-50) % Monocytes % (Manual) (2-8) % PT (9.0-12.0) SEC INR (0.9-1.2) APTT (22.0-34.0) SEC D-Dimer, Quantitative (0-400) ng/mL Sodium (136-145) mmol/L Potassium (3.5-5.1) mmol/L Chloride (98-107) mmol/L Carbon Dioxide (21-32) mmol/L Anion Gap (7-13) mEq/L BUN (7-18) mg/dL Creatinine (0.70-1.30) mg/dL Est Cr Clr Drug Dosing mL/min Estimated GFR (MDRD) BUN/Creatinine Ratio (No establ ref range) Glucose (74-99) mg/dL Lactic Acid 3.9 H* (0.4-2.0) mmol/L Calcium (8.5-10.1) mg/dL Magnesium (1.8-2.4) mg/dL Total Bilirubin (0.2-1.0) mg/dL AST (15-37) U/L ALT (16-63) U/L Alkaline Phosphatase (46-116) U/L Troponin I (0.000-0.056) ng/mL C-Reactive Protein (0.0-0.9) mg/dL Total Protein (6.4-8.2) g/dL Albumin (3.4-5.0) g/dL Globulin Albumin/Globulin Ratio Urine Color Yellow (YELLOW) Urine Appearance Clear (CLEAR) Urine pH 7.5 (5.0-9.0) Ur Specific [place] 1.020 (1.005-1.030) Urine Protein Negative (NEGATIVE) Urine Glucose (UA) Negative (NEGATIVE) Urine Ketones Negative (NEGATIVE) Urine Occult Blood Negative (NEGATIVE) Urine Nitrite Negative (NEGATIVE) Urine Bilirubin Negative (NEGATIVE) Urine Urobilinogen 0.2 (0.2-1.0) mg/dL Ur Leukocyte Esterase Negative (NEGATIVE) Result Diagrams: 07/24/20 16:22 07/24/20 16:22 - Problem List (1) Hypertension SNOMED Code(s): 53334302 ICD Code: I10 - ESSENTIAL (PRIMARY) HYPERTENSION Status: Acute Current Visit: Yes (2) Hyperglycemia SNOMED Code(s): 12208862 ICD Code: R73.9 - HYPERGLYCEMIA, UNSPECIFIED Status: Acute Current Visit: Yes (3) Lactic acidosis SNOMED Code(s): 61767137 ICD Code: E87.2 - ACIDOSIS Status: Acute Current Visit: Yes (4) COVID-19 virus infection SNOMED Code(s): 273407873 ICD Code: U07.1 - COVID-19 Status: Acute Current Visit: No (5) Shortness of breath SNOMED Code(s): 382128158 ICD Code: R06.02 - SHORTNESS OF BREATH Status: Acute Current Visit: No Problem List Initiated/Reviewed/Updated: Yes Orders Last 24hrs: Active Orders 24 hr Category Date Time Status Admission Diagnosis [ADT] Stat ADT 07/24/20 17:42 Ordered Admission Status [Patient Status] [ADT] Routine ADT 07/24/20 17:42 Active Antiembolic Devices [RC] PER UNIT ROUTINE Care 07/24/20 19:12 Ordered Glucose [Blood Glucose Check, Bedside] [RC] QIDACANDBED Care 07/24/20 18:41 Active Influenza Vaccine Charge [RC] .DISCHARGE Care 07/24/20 18:10 Active Oxygen Therapy [RC] PRN Care 07/24/20 19:10 Ordered Peripheral IV Care [RC] . DIRECTED Care 07/24/20 19:12 Ordered Up ad [place] [RC] ASDIRECTED Care 07/24/20 19:10 Ordered VTE/DVT Education [RC] PER UNIT ROUTINE Care 07/24/20 19:10 Ordered Vital Signs [RC] Q4H Care 07/24/20 19:10 Ordered Regular Diet [DIET] Diet 07/24/20 Breakfast Ordered Chest w Cont [CT] Routine Exams 07/24/20 18:39 Ordered BASIC METABOLIC PANEL,BMP [CHEM] AM Lab 07/25/20 05:15 Ordered CBC WITH AUTO DIFF [HEME] AM Lab 07/25/20 05:15 Ordered CORTISOL [REF] Routine Lab 07/25/20 07:00 Ordered CULTURE BLOOD [BC] Stat Lab 07/24/20 18:38 Ordered CULTURE BLOOD [BC] Stat Lab 07/24/20 18:38 Ordered DD [D-DIMER QUANTITATIVE] [COAG] AM Lab 07/25/20 05:11 Ordered DD [D-DIMER QUANTITATIVE] [COAG] AM Lab 07/26/20 05:11 Ordered DD [D-DIMER QUANTITATIVE] [COAG] AM Lab 07/27/20 05:11 Ordered DD [D-DIMER QUANTITATIVE] [COAG] AM Lab 07/28/20 05:11 Ordered HEPATIC FUNCTION PANEL,HFP [CHEM] AM Lab 07/25/20 05:11 Ordered LACTIC ACID [CHEM] AM Lab 07/25/20 05:11 Ordered MAGNESIUM [CHEM] AM Lab 07/25/20 05:11 Ordered PHOSPHORUS [CHEM] AM Lab 07/25/20 05:11 Ordered REFLEX LACTIC ACID YES OR NO [CHEM] Routine Lab 07/24/20 17:10 Received TSH ULTRASENSITIVE [CHEM] Routine Lab 07/24/20 18:49 Ordered Acetaminophen [TylenoL] Med 07/24/20 19:10 Ordered 650 mg PO Q4H PRN Docusate Sodium [Colace] Med 07/24/20 19:10 Ordered 100 mg PO BID PRN Heparin Sodium Med 07/24/20 22:00 Ordered 5,000 units SUBCUT Q8HR LORazepam [Ativan] Med 07/24/20 18:47 Active 1 mg PO Q6H PRN NS + KCl 20mEq/L [Normal Saline with 20 mEq KCl] 1,000 Med 07/24/20 18:45 Pending ml IV ASDIRECTED Ondansetron [Zofran ODT] Med 07/24/20 19:10 Ordered 4 mg PO Q6H PRN Ondansetron [Zofran] Med 07/24/20 19:10 Ordered 4 mg IVPUSH Q6H PRN Pharmacy to Dose - InFluenza V [Pharmacy to Dose - Med 07/24/20 18:10 Ordered InFluenza Vaccine] 1 each IM DAILY PRN Potassium Chloride [KCl 10 MEQ in Water 100 ML] 10 meq Med 07/24/20 19:30 Active Premix Bag 1 bag IV Q2H Sodium Chloride 0.9% [Normal Saline] 1,000 ml Med 07/24/20 17:24 Active IV .BOLUS Sodium Chloride 0.9% [Saline Flush] Med 07/24/20 19:10 Ordered 10 ml FLUSH ASDIRECTED PRN Zolpidem [Ambien] Med 07/24/20 19:10 Ordered 5 mg PO BEDTIME PRN dexAMETHasone [Decadron] Med 07/25/20 09:00 Ordered 6 mg IVPUSH DAILY Antiembolic Hose [OM.PC] Per Unit Routine Oth 07/24/20 19:10 Ordered Blood Culture x2 Reflex Set [OM.PC] Stat Oth 07/24/20 18:37 Ordered Peripheral IV Insertion Adult [OM.PC] Routine Oth 07/24/20 19:10 Ordered Resuscitation Status Routine Resus Stat 07/24/20 19:10 Ordered Medication Orders Acetaminophen (Tylenol) 650 mg PO Q4H PRN PRN Reason: Pain (Mild 1-3)/fever Dexamethasone (Decadron) 6 mg IVPUSH DAILY JUAN PABLO Docusate Sodium (Colace) 100 mg PO BID PRN PRN Reason: Constipation Heparin Sodium (Porcine) (Heparin Sodium) 5,000 units SUBCUT Q8HR [facility] Sodium Chloride (Normal Saline) 1,000 mls @ 125 mls/hr IV .BOLUS ONE Stop: 07/25/20 01:23 Last Admin: 07/24/20 18:33 Dose: 125 mls/hr Documented by: BLAZE Potassium Chloride 10 meq/ (Premix) 100 mls @ 100 mls/hr IV Q2H [facility] Stop: 07/25/20 06:29 Potassium Chloride/Sodium Chloride (Normal Saline With 20 Meq Kcl) 1,000 mls @ 150 mls/hr IV ASDIRECTED [facility] Influenza Virus Vaccine (Pharmacy To Dose - Influenza Vaccine) 1 each IM DAILY PRN PRN Reason: discharge Lorazepam (Ativan) 1 mg PO Q6H PRN PRN Reason: Anxiety Ondansetron HCl (Zofran Odt) 4 mg PO Q6H PRN PRN Reason: nausea, able to take PO Ondansetron HCl (Zofran) 4 mg IVPUSH Q6H PRN PRN Reason: Nausea/Vomiting Sodium Chloride (Saline Flush) 10 ml FLUSH ASDIRECTED PRN PRN Reason: Keep Vein Open Zolpidem Tartrate (Ambien) 5 mg PO BEDTIME PRN PRN Reason: Sleep Assessment/Plan Comment:: 45-year-old who presented with generalized weakness, malaise about 11-12 days following initial symptoms of Covid 19 infection he is hemodynamically stable, oxygen saturations are good. Elevated anion gap Lactic acidosis Hyperglycemia No history of diabetes might relate to starvation possible dka We will check hemoglobin A1c Follow blood sugars Use supplemental insulin as needed IV hydration Recheck lactic acid level Hypokalemia Likely due to low oral intake Give IV potassium replacement Shortness of breath in the setting of Covid 19 infection D-dimer is somewhat elevated Oxygen saturation is good We will obtain CT chest to rule out PE Well monitor oxygen saturation Generalized malaise, weakness We will obtain a morning cortisol Obtain TSH Obtain blood cultures History of hypertension Resume lisinopril and hydrochlorothiazide Anxiety Add Ativan as needed DVT prophylaxis with subcutaneous heparin
--- NOTE | 2020-07-24 20:12 | CT ---
PROCEDURE INFORMATION: Exam: CT Chest With Contrast; Diagnostic Exam date and time: 07/24/2020 7:47 PM Age: 45 years old Clinical indication: Other: D-dimer 582--[facility]; Additional info: SOB TECHNIQUE: Imaging protocol: Diagnostic computed tomography of the chest with intravenous contrast. Total images: 386 Radiation optimization: All CT scans at this facility use at least one of these dose optimization techniques: automated exposure control; mA and/or kV adjustment per patient size (includes targeted exams where dose is matched to clinical indication); or iterative reconstruction. Contrast material: [id number]; Contrast volume: 73 ml; Contrast route: INTRAVENOUS (IV); COMPARISON: CT Chest wo Cont 07/22/2020 5:33 PM FINDINGS: Lungs: Multifocal predominantly rounded ground-glass lung opacities predominantly lower lobes. Pleural space: Unremarkable. No pneumothorax. No pleural effusion. Heart: Unremarkable. No cardiomegaly. No pericardial effusion. Aorta: Unremarkable. No aortic aneurysm. Lymph nodes: Unremarkable. No enlarged lymph nodes. Bones/joints: Unremarkable. No acute fracture. Soft tissues: Unremarkable. IMPRESSION: Multifocal ground-glass lung opacities lower lobes compatible with multifocal pneumonia. The appearance is typical for COVID-19 pneumonia.
[2020-07-24] MEDS: Dexamethasone 4 MG/ML SDV IVPUSH SCH (20:52)
[2020-07-24] MEDS: Potassium Chloride 10 MEQ in Premix Bag 1 BAG IV SCH ×2 (20:55→22:54)
[2020-07-24] MEDS: Heparin Sodium 5,000 Units/ML Vial SUBCUT SCH (21:54)
[2020-07-25] MEDS: Potassium Chloride 10 MEQ in Premix Bag 1 BAG IV SCH ×4 (00:57→06:40)
[2020-07-25] MEDS: Heparin Sodium 5,000 Units/ML Vial SUBCUT SCH ×4 (04:59→22:04)
[2020-07-25 07:33] LABS: ANION GAP 15.9 mEq/L (7-13); CHLORIDE,CL 104 mmol/L (98-107); SODIUM,NA 140 mmol/L (136-145)
[2020-07-25] MEDS: NS + KCl 20mEq/L 1,000 ML IV SCH ×3 (08:30→22:15)
--- NOTE | 2020-07-25 10:42 | PCM.PN ---
- General Info Date of Service: 07/25/20 Admission Dx/Problem (Free Text): Admission Diagnosis/Problem Admission Diagnosis/Problem Hypokalemia Subjective Update: continues to have the pressure feeling on the left side of the chest, associated with subjective shortness of breath. No significant cough, no fever. Oxygen saturations have remained good on room air. No abdominal pain. Has very little appetite. Functional Status: Reports: Pain Controlled - Review of Systems General: Reports: Weakness, Fatigue, Malaise Pulmonary: Reports: Shortness of Breath. Denies: Cough, Sputum, Hemoptysis, Wheezing Cardiovascular: Reports: Chest Pain (Left sided pressure). Denies: Edema Genitourinary: Denies: Dysuria Neurological: Denies: Confusion - Patient Data Vitals - Most Recent: Last Vital Signs Temp 98.9 F 07/25/20 08:00 Pulse 77 07/25/20 08:00 Resp 22 H 07/25/20 08:00 BP 135/77 07/25/20 08:00 Pulse Ox 100 07/25/20 08:00 Weight - Most Recent: 156 lb I&O - Last 24 Hours: Intake & Output 07/24/20 07/25/20 07/25/20 22:59 06:59 14:59 Intake Total 100 1600 250 Output Total 400 350 Balance 100 1200 -100 Lab Results Last 24 Hours: Laboratory Results - last 24 hr 07/24/20 07/24/20 07/24/20 Range/Units 16:22 16:22 16:22 WBC 9.6 (5.0-10.0) 10^3/uL RBC 5.18 (4.6-6.2) 10^6/uL Hgb 15.5 (14.0-18.0) g/dL Hct 43.2 (40.0-54.0) % MCV 83.4 (80-100) fL MCH 29.9 (27.0-34.0) pg MCHC 35.9 H (33.0-35.0) g/dL Plt Count 207 (150-450) 10^3/uL Neut % (Auto) 90.1 H (42.2-75.2) % Lymph % (Auto) 5.3 L (20.5-50.1) % [place] % (Auto) 4.4 (2-8) % Eos % (Auto) 0.0 L (1.0-3.0) % Baso % (Auto) 0.2 (0.0-1.0) % Add Manual Diff Yes Neutrophils % (Manual) 82 H (42-75) % Band Neutrophils % 2 % Lymphocytes % (Manual) 10 L (20-50) % Monocytes % (Manual) 6 (2-8) % PT 10.8 (9.0-12.0) SEC INR 1.1 (0.9-1.2) APTT 22.3 (22.0-34.0) SEC D-Dimer, Quantitative 582 H (0-400) ng/mL Sodium 138 (136-145) mmol/L Potassium 2.9 L (3.5-5.1) mmol/L Chloride 100 (98-107) mmol/L Carbon Dioxide 24 (21-32) mmol/L Anion Gap 16.9 H (7-13) mEq/L BUN 15 (7-18) mg/dL Creatinine 1.14 (0.70-1.30) mg/dL Est Cr Clr Drug Dosing 83.55 mL/min Estimated GFR (MDRD) > 60 BUN/Creatinine Ratio 13.2 (No establ ref range) Glucose 166 H (74-99) mg/dL POC Glucose (70-105) mg/dl Lactic Acid (0.4-2.0) mmol/L Calcium 8.8 (8.5-10.1) mg/dL Phosphorus (2.6-4.7) mg/dL Magnesium 1.8 (1.8-2.4) mg/dL Total Bilirubin 0.4 (0.2-1.0) mg/dL Direct Bilirubin (0.0-0.2) mg/dL Indirect Bilirubin AST 33 (15-37) U/L ALT 86 H (16-63) U/L Alkaline Phosphatase 82 (46-116) U/L Troponin I < 0.017 (0.000-0.056) ng/mL C-Reactive Protein 0.2 (0.0-0.9) mg/dL Total Protein 7.1 (6.4-8.2) g/dL Albumin 3.7 (3.4-5.0) g/dL Globulin 3.4 Albumin/Globulin Ratio 1.1 TSH, Ultra Sensitive (0.36-3.74) uIU/mL Urine Color (YELLOW) Urine Appearance (CLEAR) Urine pH (5.0-9.0) Ur Specific [place] (1.005-1.030) Urine Protein (NEGATIVE) Urine Glucose (UA) (NEGATIVE) Urine Ketones (NEGATIVE) Urine Occult Blood (NEGATIVE) Urine Nitrite (NEGATIVE) Urine Bilirubin (NEGATIVE) Urine Urobilinogen (0.2-1.0) mg/dL Ur Leukocyte Esterase (NEGATIVE) 07/24/20 07/24/20 07/24/20 Range/Units 16:22 16:22 16:43 WBC (5.0-10.0) 10^3/uL RBC (4.6-6.2) 10^6/uL Hgb (14.0-18.0) g/dL Hct (40.0-54.0) % MCV (80-100) fL MCH (27.0-34.0) pg MCHC (33.0-35.0) g/dL Plt Count (150-450) 10^3/uL Neut % (Auto) (42.2-75.2) % Lymph % (Auto) (20.5-50.1) % [place] % (Auto) (2-8) % Eos % (Auto) (1.0-3.0) % Baso % (Auto) (0.0-1.0) % Add Manual Diff Neutrophils % (Manual) (42-75) % Band Neutrophils % % Lymphocytes % (Manual) (20-50) % Monocytes % (Manual) (2-8) % PT (9.0-12.0) SEC INR (0.9-1.2) APTT (22.0-34.0) SEC D-Dimer, Quantitative (0-400) ng/mL Sodium (136-145) mmol/L Potassium (3.5-5.1) mmol/L Chloride (98-107) mmol/L Carbon Dioxide (21-32) mmol/L Anion Gap (7-13) mEq/L BUN (7-18) mg/dL Creatinine (0.70-1.30) mg/dL Est Cr Clr Drug Dosing mL/min Estimated GFR (MDRD) BUN/Creatinine Ratio (No establ ref range) Glucose (74-99) mg/dL POC Glucose (70-105) mg/dl Lactic Acid 3.9 H* (0.4-2.0) mmol/L Calcium (8.5-10.1) mg/dL Phosphorus (2.6-4.7) mg/dL Magnesium (1.8-2.4) mg/dL Total Bilirubin (0.2-1.0) mg/dL Direct Bilirubin (0.0-0.2) mg/dL Indirect Bilirubin AST (15-37) U/L ALT (16-63) U/L Alkaline Phosphatase (46-116) U/L Troponin I (0.000-0.056) ng/mL C-Reactive Protein (0.0-0.9) mg/dL Total Protein (6.4-8.2) g/dL Albumin (3.4-5.0) g/dL Globulin Albumin/Globulin Ratio TSH, Ultra Sensitive 2.36 (0.36-3.74) uIU/mL Urine Color Yellow (YELLOW) Urine Appearance Clear (CLEAR) Urine pH 7.5 (5.0-9.0) Ur Specific [place] 1.020 (1.005-1.030) Urine Protein Negative (NEGATIVE) Urine Glucose (UA) Negative (NEGATIVE) Urine Ketones Negative (NEGATIVE) Urine Occult Blood Negative (NEGATIVE) Urine Nitrite Negative (NEGATIVE) Urine Bilirubin Negative (NEGATIVE) Urine Urobilinogen 0.2 (0.2-1.0) mg/dL Ur Leukocyte Esterase Negative (NEGATIVE) 07/24/20 07/24/20 07/25/20 Range/Units 20:30 21:08 06:40 WBC (5.0-10.0) 10^3/uL RBC (4.6-6.2) 10^6/uL Hgb (14.0-18.0) g/dL Hct (40.0-54.0) % MCV (80-100) fL MCH (27.0-34.0) pg MCHC (33.0-35.0) g/dL Plt Count (150-450) 10^3/uL Neut % (Auto) (42.2-75.2) % Lymph % (Auto) (20.5-50.1) % [place] % (Auto) (2-8) % Eos % (Auto) (1.0-3.0) % Baso % (Auto) (0.0-1.0) % Add Manual Diff Neutrophils % (Manual) (42-75) % Band Neutrophils % % Lymphocytes % (Manual) (20-50) % Monocytes % (Manual) (2-8) % PT (9.0-12.0) SEC INR (0.9-1.2) APTT (22.0-34.0) SEC D-Dimer, Quantitative (0-400) ng/mL Sodium (136-145) mmol/L Potassium (3.5-5.1) mmol/L Chloride (98-107) mmol/L Carbon Dioxide (21-32) mmol/L Anion Gap (7-13) mEq/L BUN (7-18) mg/dL Creatinine (0.70-1.30) mg/dL Est Cr Clr Drug Dosing mL/min Estimated GFR (MDRD) BUN/Creatinine Ratio (No establ ref range) Glucose (74-99) mg/dL POC Glucose 141 H (70-105) mg/dl Lactic Acid 2.5 H* 2.2 H* (0.4-2.0) mmol/L Calcium (8.5-10.1) mg/dL Phosphorus (2.6-4.7) mg/dL Magnesium (1.8-2.4) mg/dL Total Bilirubin (0.2-1.0) mg/dL Direct Bilirubin (0.0-0.2) mg/dL Indirect Bilirubin AST (15-37) U/L ALT (16-63) U/L Alkaline Phosphatase (46-116) U/L Troponin I (0.000-0.056) ng/mL C-Reactive Protein (0.0-0.9) mg/dL Total Protein (6.4-8.2) g/dL Albumin (3.4-5.0) g/dL Globulin Albumin/Globulin Ratio TSH, Ultra Sensitive (0.36-3.74) uIU/mL Urine Color (YELLOW) Urine Appearance (CLEAR) Urine pH (5.0-9.0) Ur Specific [place] (1.005-1.030) Urine Protein (NEGATIVE) Urine Glucose (UA) (NEGATIVE) Urine Ketones (NEGATIVE) Urine Occult Blood (NEGATIVE) Urine Nitrite (NEGATIVE) Urine Bilirubin (NEGATIVE) Urine Urobilinogen (0.2-1.0) mg/dL Ur Leukocyte Esterase (NEGATIVE) 07/25/20 07/25/20 07/25/20 Range/Units 06:40 06:40 06:40 WBC 10.1 H (5.0-10.0) 10^3/uL RBC 5.08 (4.6-6.2) 10^6/uL Hgb 15.3 (14.0-18.0) g/dL Hct 42.5 (40.0-54.0) % MCV 83.7 (80-100) fL MCH 30.1 (27.0-34.0) pg MCHC 36.0 H (33.0-35.0) g/dL Plt Count 219 (150-450) 10^3/uL Neut % (Auto) 87.4 H (42.2-75.2) % Lymph % (Auto) 8.6 L (20.5-50.1) % [place] % (Auto) 3.8 (2-8) % Eos % (Auto) 0.0 L (1.0-3.0) % Baso % (Auto) 0.2 (0.0-1.0) % Add Manual Diff Neutrophils % (Manual) (42-75) % Band Neutrophils % % Lymphocytes % (Manual) (20-50) % Monocytes % (Manual) (2-8) % PT (9.0-12.0) SEC INR (0.9-1.2) APTT (22.0-34.0) SEC D-Dimer, Quantitative 557 H (0-400) ng/mL Sodium 140 (136-145) mmol/L Potassium 3.9 (3.5-5.1) mmol/L Chloride 104 (98-107) mmol/L Carbon Dioxide 24 (21-32) mmol/L Anion Gap 15.9 H (7-13) mEq/L BUN 15 (7-18) mg/dL Creatinine 0.95 (0.70-1.30) mg/dL Est Cr Clr Drug Dosing 97.00 mL/min Estimated GFR (MDRD) > 60 BUN/Creatinine Ratio (No establ ref range) Glucose 105 H (74-99) mg/dL POC Glucose (70-105) mg/dl Lactic Acid (0.4-2.0) mmol/L Calcium 8.4 L (8.5-10.1) mg/dL Phosphorus 2.7 (2.6-4.7) mg/dL Magnesium 1.8 (1.8-2.4) mg/dL Total Bilirubin 0.6 (0.2-1.0) mg/dL Direct Bilirubin 0.1 (0.0-0.2) mg/dL Indirect Bilirubin 0.5 AST 21 (15-37) U/L ALT 73 H (16-63) U/L Alkaline Phosphatase 78 (46-116) U/L Troponin I (0.000-0.056) ng/mL C-Reactive Protein (0.0-0.9) mg/dL Total Protein 6.5 (6.4-8.2) g/dL Albumin 3.4 (3.4-5.0) g/dL Globulin 3.1 Albumin/Globulin Ratio 1.1 TSH, Ultra Sensitive (0.36-3.74) uIU/mL Urine Color (YELLOW) Urine Appearance (CLEAR) Urine pH (5.0-9.0) Ur Specific [place] (1.005-1.030) Urine Protein (NEGATIVE) Urine Glucose (UA) (NEGATIVE) Urine Ketones (NEGATIVE) Urine Occult Blood (NEGATIVE) Urine Nitrite (NEGATIVE) Urine Bilirubin (NEGATIVE) Urine Urobilinogen (0.2-1.0) mg/dL Ur Leukocyte Esterase (NEGATIVE) 07/25/20 Range/Units 07:55 WBC (5.0-10.0) 10^3/uL RBC (4.6-6.2) 10^6/uL Hgb (14.0-18.0) g/dL Hct (40.0-54.0) % MCV (80-100) fL MCH (27.0-34.0) pg MCHC (33.0-35.0) g/dL Plt Count (150-450) 10^3/uL Neut % (Auto) (42.2-75.2) % Lymph % (Auto) (20.5-50.1) % [place] % (Auto) (2-8) % Eos % (Auto) (1.0-3.0) % Baso % (Auto) (0.0-1.0) % Add Manual Diff Neutrophils % (Manual) (42-75) % Band Neutrophils % % Lymphocytes % (Manual) (20-50) % Monocytes % (Manual) (2-8) % PT (9.0-12.0) SEC INR (0.9-1.2) APTT (22.0-34.0) SEC D-Dimer, Quantitative (0-400) ng/mL Sodium (136-145) mmol/L Potassium (3.5-5.1) mmol/L Chloride (98-107) mmol/L Carbon Dioxide (21-32) mmol/L Anion Gap (7-13) mEq/L BUN (7-18) mg/dL Creatinine (0.70-1.30) mg/dL Est Cr Clr Drug Dosing mL/min Estimated GFR (MDRD) BUN/Creatinine Ratio (No establ ref range) Glucose (74-99) mg/dL POC Glucose 95 (70-105) mg/dl Lactic Acid (0.4-2.0) mmol/L Calcium (8.5-10.1) mg/dL Phosphorus (2.6-4.7) mg/dL Magnesium (1.8-2.4) mg/dL Total Bilirubin (0.2-1.0) mg/dL Direct Bilirubin (0.0-0.2) mg/dL Indirect Bilirubin AST (15-37) U/L ALT (16-63) U/L Alkaline Phosphatase (46-116) U/L Troponin I (0.000-0.056) ng/mL C-Reactive Protein (0.0-0.9) mg/dL Total Protein (6.4-8.2) g/dL Albumin (3.4-5.0) g/dL Globulin Albumin/Globulin Ratio TSH, Ultra Sensitive (0.36-3.74) uIU/mL Urine Color (YELLOW) Urine Appearance (CLEAR) Urine pH (5.0-9.0) Ur Specific [place] (1.005-1.030) Urine Protein (NEGATIVE) Urine Glucose (UA) (NEGATIVE) Urine Ketones (NEGATIVE) Urine Occult Blood (NEGATIVE) Urine Nitrite (NEGATIVE) Urine Bilirubin (NEGATIVE) Urine Urobilinogen (0.2-1.0) mg/dL Ur Leukocyte Esterase (NEGATIVE) Med Orders - Current: Current Medications Acetaminophen (Tylenol) 650 mg PO Q4H PRN PRN Reason: Pain (Mild 1-3)/fever Dexamethasone (Decadron) 6 mg IVPUSH DAILY@1999 [facility] Last Admin: 07/24/20 20:52 Dose: 6 mg Documented by: Docusate Sodium (Colace) 100 mg PO BID PRN PRN Reason: Constipation Heparin Sodium (Porcine) (Heparin Sodium) 5,000 units SUBCUT Q8HR [facility] Last Admin: 07/25/20 04:59 Dose: 5,000 units Documented by: Potassium Chloride/Sodium Chloride (Normal Saline With 20 Meq Kcl) 1,000 mls @ 150 mls/hr IV ASDIRECTED [facility] Last Admin: 07/25/20 08:30 Dose: 150 mls/hr Documented by: Remdesivir 200 mg/ Sodium (Chloride) 250 mls @ 250 mls/hr IV ONETIME ONE Stop: 07/25/20 13:59 Remdesivir 100 mg/ Sodium (Chloride) 100 mls @ 100 mls/hr IV Q24H [facility] Stop: 07/29/20 09:59 Influenza Virus Vaccine (Pharmacy To Dose - Influenza Vaccine) 1 each IM DAILY PRN PRN Reason: discharge Lorazepam (Ativan) 1 mg PO Q6H PRN PRN Reason: Anxiety Ondansetron HCl (Zofran Odt) 4 mg PO Q6H PRN PRN Reason: nausea, able to take PO Ondansetron HCl (Zofran) 4 mg IVPUSH Q6H PRN PRN Reason: Nausea/Vomiting Sodium Chloride (Saline Flush) 10 ml FLUSH ASDIRECTED PRN PRN Reason: Keep Vein Open Sodium Chloride (Saline Flush) 30 ml FLUSH DAILY PRN PRN Reason: Flush Zolpidem Tartrate (Ambien) 5 mg PO BEDTIME PRN PRN Reason: Sleep Discontinued Medications Potassium Chloride 10 meq/ (Premix) 100 mls @ 100 mls/hr IV ONETIME ONE Stop: 07/24/20 18:21 Last Admin: 07/24/20 18:33 Dose: 100 mls/hr Documented by: Sodium Chloride (Normal Saline) 1,000 mls @ 125 mls/hr IV .BOLUS ONE Stop: 07/25/20 01:23 Last Infusion: 07/25/20 02:38 Dose: Infused Documented by: Potassium Chloride 10 meq/ (Premix) 100 mls @ 100 mls/hr IV Q2H [facility] Stop: 07/25/20 06:29 Last Admin: 07/25/20 06:40 Dose: 75 mls/hr Documented by: Iopamidol ([id number] (76%)) 100 ml IVPUSH ONETIME ONE Stop: 07/24/20 19:07 Last Admin: 07/24/20 19:23 Dose: 100 ml Documented by: - Exam Quality Assessment: No: Supplemental Oxygen General: Alert, Oriented Neck: Supple Lungs: Clear to Auscultation, Normal Respiratory Effort. No: Rales, Wheezing Cardiovascular: Regular Rate, Regular Rhythm GI/Abdominal Exam: Normal Bowel Sounds, Soft, Non-Tender Extremities: No Pedal Edema Skin: Warm, Dry Neurological: No New Focal Deficit Psy/Mental Status: Alert, Normal Affect, Normal Mood Sepsis Event Note - Evaluation Sepsis Screening Result: No Definite Risk - Focused Exam Vital Signs: Vital Signs Temp Pulse Resp BP Pulse Ox 07/25/20 08:00 98.9 F 77 22 H 135/77 100 07/25/20 04:48 98 F 66 20 113/66 98 07/25/20 00:00 97.7 F 61 20 110/67 98 - Problem List & Annotations (1) Hypertension SNOMED Code(s): 65337764 Code(s): I10 - ESSENTIAL (PRIMARY) HYPERTENSION Status: Acute Current Visit: Yes (2) Hyperglycemia SNOMED Code(s): 72745687 Code(s): R73.9 - HYPERGLYCEMIA, UNSPECIFIED Status: Acute Current Visit: Yes (3) Lactic acidosis SNOMED Code(s): 72694665 Code(s): E87.2 - ACIDOSIS Status: Acute Current Visit: Yes (4) COVID-19 virus infection SNOMED Code(s): 397556497 Code(s): U07.1 - COVID-19 Status: Acute Current Visit: No (5) Shortness of breath SNOMED Code(s): 359195111 Code(s): R06.02 - SHORTNESS OF BREATH Status: Acute Current Visit: No (6) Pneumonia due to COVID-19 virus SNOMED Code(s): 737752956289319604 Code(s): U07.1 - COVID-19; J12.82 - PNEUMONIA DUE TO CORONAVIRUS DISEASE 2019 Status: Acute Current Visit: Yes - Problem List Review Problem List Initiated/Reviewed/Updated: Yes - My Orders Last 24 Hours: My Active Orders 07/24/20 18:10 Influenza Vaccine Charge [RC] .DISCHARGE Pharmacy to Dose - InFluenza V [Pharmacy to Dose - InFluenza Vaccine] 1 each IM DAILY PRN 07/24/20 18:37 Blood Culture x2 Reflex Set [OM.PC] Stat 07/24/20 18:41 Glucose [Blood Glucose Check, Bedside] [RC] QIDACANDBED 07/24/20 18:47 LORazepam [Ativan] 1 mg PO Q6H PRN 07/24/20 19:10 Oxygen Therapy [RC] PRN Up ad [place] [RC] ASDIRECTED VTE/DVT Education [RC] PER UNIT ROUTINE Vital Signs [RC] Q4H Acetaminophen [TylenoL] 650 mg PO Q4H PRN Docusate Sodium [Colace] 100 mg PO BID PRN Ondansetron [Zofran ODT] 4 mg PO Q6H PRN Ondansetron [Zofran] 4 mg IVPUSH Q6H PRN Sodium Chloride 0.9% [Saline Flush] 10 ml FLUSH ASDIRECTED PRN Zolpidem [Ambien] 5 mg PO BEDTIME PRN Antiembolic Hose [OM.PC] Per Unit Routine Peripheral IV Insertion Adult [OM.PC] Routine Resuscitation Status Routine 07/24/20 19:12 Antiembolic Devices [RC] PER UNIT ROUTINE Peripheral IV Care [RC] 08,20 07/24/20 20:00 dexAMETHasone [Decadron] 6 mg IVPUSH DAILY@199907/24/20 20:30 CULTURE BLOOD [BC] Stat 07/24/20 20:33 CULTURE BLOOD [BC] Stat 07/24/20 22:00 Heparin Sodium 5,000 units SUBCUT Q8HR 07/25/20 06:30 NS + KCl 20mEq/L [Normal Saline with 20 mEq KCl] 1,000 ml IV ASDIRECTED 07/25/20 06:40 CORTISOL [REF] Routine 07/25/20 10:11 Nurse Communication: Isolation [RC] ASDIRECTED Isolation [COMM] Routine 07/25/20 10:15 Remdesivir 200 mg Sodium Chloride 0.9% [Normal Saline] 250 ml IV ONETIME 07/25/20 10:16 Nurse Communication: Isolation [RC] ASDIRECTED Isolation [COMM] Stat 07/25/20 14:00 Sodium Chloride 0.9% [Saline Flush] 30 ml FLUSH DAILY PRN 07/26/20 05:11 DD [D-DIMER QUANTITATIVE] [COAG] AM HEPATIC FUNCTION PANEL,[facility] [CHEM] AM 07/26/20 09:00 Remdesivir 100 mg Sodium Chloride 0.9% [Normal Saline] 100 ml IV Q24H 07/27/20 05:11 BASIC METABOLIC PANEL,BMP [CHEM] AM CBC WITH AUTO DIFF [HEME] AM DD [D-DIMER QUANTITATIVE] [COAG] AM HEPATIC FUNCTION PANEL,HFP [CHEM] AM 07/28/20 05:11 BASIC METABOLIC PANEL,BMP [CHEM] AM CBC WITH AUTO DIFF [HEME] AM DD [D-DIMER QUANTITATIVE] [COAG] AM HEPATIC FUNCTION PANEL,HFP [CHEM] AM 07/29/20 05:11 BASIC METABOLIC PANEL,BMP [CHEM] AM CBC WITH AUTO DIFF [HEME] AM HEPATIC FUNCTION PANEL,[facility] [CHEM] AM 07/30/20 05:11 BASIC METABOLIC PANEL,BMP [CHEM] AM CBC WITH AUTO DIFF [HEME] AM HEPATIC FUNCTION PANEL,[facility] [CHEM] AM 07/31/20 05:11 BASIC METABOLIC PANEL,BMP [CHEM] AM CBC WITH AUTO DIFF [HEME] AM - Plan Plan:: 45-year-old who presented with generalized weakness, malaise about 11-12 days following initial symptoms of Covid 19 infection he is hemodynamically stable, oxygen saturations are good. Elevated anion gap Lactic acidosis Hyperglycemia No history of diabetes might relate to starvation improved possible dka hemoglobin A1c hgbA1c Follow blood sugars Use supplemental insulin as needed IV hydration Hypokalemia Likely due to low oral intake Given IV potassium replacement improved recheck in AM Shortness of breath in the setting of Covid 19 infection Covid resp symptoms from 07/13 covid + test 07/14 Oxygen saturation is good, on RA CT chest negative for PE but showed typical covid 19 pneumonia changes these are new from prior CT 07/22/20 will cont dexamethasone start remdesivir - discussed risks/benefits with pt, discussed limited info with this drug, low likelyhood that this will actually benefit since date of infection is more than 10 days prior, the progressive changes on ct may argue for some benefit will also extend resp isolation to 20 days from original test bacterial infection is less likely since the CT changes were quite typical for covid will send procalcitonin Well monitor oxygen saturation Generalized malaise, weakness We will obtain a morning cortisol normal TSH blood cultures: pending History of hypertension Resume lisinopril and hydrochlorothiazide Anxiety Add Ativan as needed DVT prophylaxis with subcutaneous heparin - monitor DDimer daily
[2020-07-25] MEDS ORDERED: REMDESIVIR 200 MG in Sodium Chloride 0.9% 250 ML IV ONE (13:00)
[2020-07-25] MEDS: guaiFENesin/Dextromethorphan 100-10 MG/5 ML Soln 5 ML Cup PO PRN (13:52)
[2020-07-25] MEDS ORDERED: Sodium Chloride 0.9% 10 ML Syringe FLUSH PRN (14:00)
[2020-07-25] MEDS: Dexamethasone 4 MG/ML SDV IVPUSH SCH (20:49)
[2020-07-25] MEDS: Zolpidem 5 MG Tab PO PRN (20:50)
[2020-07-25] MEDS: LORazepam 1 MG Tab PO PRN (20:50)
[2020-07-26] MEDS: Heparin Sodium 5,000 Units/ML Vial SUBCUT SCH ×3 (05:16→21:46)
[2020-07-26] MEDS: NS + KCl 20mEq/L 1,000 ML IV SCH (05:20)
[2020-07-26] MEDS ORDERED: REMDESIVIR 100 MG in Sodium Chloride 0.9% 100 ML IV SCH (09:00)
[2020-07-26] MEDS: REMDESIVIR 100 MG in Sodium Chloride 0.9% 100 ML IV SCH (09:42)
--- NOTE | 2020-07-26 12:40 | PCM.PN ---
- General Info Date of Service: 07/26/20 Admission Dx/Problem (Free Text): Admission Diagnosis/Problem Admission Diagnosis/Problem Hypokalemia, covid 19 pneumonia Subjective Update: the pressure feeling on the left side of the chest has improved Also improvement in shortness of breath. No significant cough, but he says he is coughing more after Remdesivir no fever. Oxygen saturations have remained good on room air. No abdominal pain. Has better appetite. Functional Status: Reports: Pain Controlled, Tolerating Diet - Review of Systems General: Denies: Fever Pulmonary: Reports: Shortness of Breath Cardiovascular: Reports: Chest Pain Gastrointestinal: Denies: Abdominal Pain Genitourinary: Denies: Dysuria Neurological: Denies: Confusion - Patient Data Vitals - Most Recent: Last Vital Signs Temp 98.7 F 07/26/20 08:11 Pulse 66 07/26/20 08:11 Resp 16 07/26/20 08:11 BP 129/77 07/26/20 08:11 Pulse Ox 98 07/26/20 08:11 Weight - Most Recent: 156 lb Lab Results Last 24 Hours: Laboratory Results - last 24 hr 07/25/20 07/25/20 07/25/20 Range/Units 06:40 06:40 17:12 D-Dimer, Quantitative (0-400) ng/mL POC Glucose 107 H (70-105) mg/dl Total Bilirubin (0.2-1.0) mg/dL Direct Bilirubin (0.0-0.2) mg/dL Indirect Bilirubin AST (15-37) U/L ALT (16-63) U/L Alkaline Phosphatase (46-116) U/L Total Protein (6.4-8.2) g/dL Albumin (3.4-5.0) g/dL Globulin Albumin/Globulin Ratio Procalcitonin <0.05 ng/mL Cortisol 1.1 ug/dL 07/25/20 07/26/20 07/26/20 Range/Units 20:41 06:42 06:42 D-Dimer, Quantitative 252 (0-400) ng/mL POC Glucose 123 H (70-105) mg/dl Total Bilirubin 0.4 (0.2-1.0) mg/dL Direct Bilirubin 0.1 (0.0-0.2) mg/dL Indirect Bilirubin 0.3 AST 16 (15-37) U/L ALT 61 (16-63) U/L Alkaline Phosphatase 72 (46-116) U/L Total Protein 6.3 L (6.4-8.2) g/dL Albumin 3.1 L (3.4-5.0) g/dL Globulin 3.2 Albumin/Globulin Ratio 0.97 Procalcitonin ng/mL Cortisol ug/dL 07/26/20 07/26/20 Range/Units 08:08 12:24 D-Dimer, Quantitative (0-400) ng/mL POC Glucose 109 H 85 (70-105) mg/dl Total Bilirubin (0.2-1.0) mg/dL Direct Bilirubin (0.0-0.2) mg/dL Indirect Bilirubin AST (15-37) U/L ALT (16-63) U/L Alkaline Phosphatase (46-116) U/L Total Protein (6.4-8.2) g/dL Albumin (3.4-5.0) g/dL Globulin Albumin/Globulin Ratio Procalcitonin ng/mL Cortisol ug/dL Octavio Results Last 24 Hours: Microbiology 07/24/20 20:33 Aerobic Blood Culture - Preliminary Blood - Arm, Right NO GROWTH AFTER 1 DAY Anaerobic Blood Culture - Preliminary NO GROWTH AFTER 1 DAY 07/24/20 20:30 Aerobic Blood Culture - Preliminary Blood - Arm, Left NO GROWTH AFTER 1 DAY Anaerobic Blood Culture - Preliminary NO GROWTH AFTER 1 DAY Med Orders - Current: Current Medications Acetaminophen (Tylenol) 650 mg PO Q4H PRN PRN Reason: Pain (Mild 1-3)/fever Dexamethasone (Decadron) 6 mg IVPUSH DAILY@1999 [facility] Last Admin: 07/25/20 20:49 Dose: 6 mg Documented by: Docusate Sodium (Colace) 100 mg PO BID PRN PRN Reason: Constipation Guaifenesin/Phenylephrine HCl (Robitussin Dm) 10 ml PO Q6H PRN PRN Reason: Cough Last Admin: 07/25/20 13:52 Dose: 10 ml Documented by: Heparin Sodium (Porcine) (Heparin Sodium) 5,000 units SUBCUT Q8HR [facility] Last Admin: 07/26/20 05:16 Dose: 5,000 units Documented by: Potassium Chloride/Sodium Chloride (Normal Saline With 20 Meq Kcl) 1,000 mls @ 150 mls/hr IV ASDIRECTED [facility] Last Admin: 07/26/20 05:20 Dose: 150 mls/hr Documented by: Remdesivir 100 mg/ Sodium (Chloride) 100 mls @ 100 mls/hr IV Q24H [facility] Stop: 07/29/20 09:59 Last Admin: 07/26/20 09:42 Dose: 100 mls/hr Documented by: Influenza Virus Vaccine (Pharmacy To Dose - Influenza Vaccine) 1 each IM DAILY PRN PRN Reason: discharge Lorazepam (Ativan) 1 mg PO Q6H PRN PRN Reason: Anxiety Last Admin: 07/25/20 20:50 Dose: 1 mg Documented by: Ondansetron HCl (Zofran Odt) 4 mg PO Q6H PRN PRN Reason: nausea, able to take PO Ondansetron HCl (Zofran) 4 mg IVPUSH Q6H PRN PRN Reason: Nausea/Vomiting Sodium Chloride (Saline Flush) 10 ml FLUSH ASDIRECTED PRN PRN Reason: Keep Vein Open Sodium Chloride (Saline Flush) 30 ml FLUSH DAILY PRN PRN Reason: Flush Zolpidem Tartrate (Ambien) 5 mg PO BEDTIME PRN PRN Reason: Sleep Last Admin: 07/25/20 20:50 Dose: 5 mg Documented by: Discontinued Medications Potassium Chloride 10 meq/ (Premix) 100 mls @ 100 mls/hr IV ONETIME ONE Stop: 07/24/20 18:21 Last Admin: 07/24/20 18:33 Dose: 100 mls/hr Documented by: Sodium Chloride (Normal Saline) 1,000 mls @ 125 mls/hr IV .BOLUS ONE Stop: 07/25/20 01:23 Last Infusion: 07/25/20 02:38 Dose: Infused Documented by: Potassium Chloride 10 meq/ (Premix) 100 mls @ 100 mls/hr IV Q2H [facility] Stop: 07/25/20 06:29 Last Admin: 07/25/20 06:40 Dose: 75 mls/hr Documented by: Remdesivir 200 mg/ Sodium (Chloride) 250 mls @ 250 mls/hr IV ONETIME ONE Stop: 07/25/20 13:59 Last Admin: 07/25/20 13:57 Dose: 250 mls/hr Documented by: Remdesivir 100 mg/ Sodium (Chloride) 100 mls @ 100 mls/hr IV Q24H [facility] Stop: 07/29/20 09:59 Iopamidol (Isovue-370 (76%)) 100 ml IVPUSH ONETIME ONE Stop: 07/24/20 19:07 Last Admin: 07/24/20 19:23 Dose: 100 ml Documented by: - Exam General: Alert, Oriented Neck: Supple Lungs: Clear to Auscultation, Normal Respiratory Effort Cardiovascular: Regular Rate, Regular Rhythm GI/Abdominal Exam: Normal Bowel Sounds, Soft, Non-Tender Extremities: No Pedal Edema Skin: Warm, Dry Psy/Mental Status: Alert, Normal Affect, Normal Mood Sepsis Event Note - Evaluation Sepsis Screening Result: No Definite Risk - Focused Exam Vital Signs: Vital Signs Temp Pulse Resp BP Pulse Ox 07/26/20 08:11 98.7 F 66 16 129/77 98 07/26/20 05:14 99.5 F 73 16 115/72 99 - Problem List & Annotations (1) Hypertension SNOMED Code(s): 17791503 Code(s): I10 - ESSENTIAL (PRIMARY) HYPERTENSION Status: Acute Current Visit: Yes (2) Hyperglycemia SNOMED Code(s): 96845494 Code(s): R73.9 - HYPERGLYCEMIA, UNSPECIFIED Status: Acute Current Visit: Yes (3) Lactic acidosis SNOMED Code(s): 04488234 Code(s): E87.2 - ACIDOSIS Status: Acute Current Visit: Yes (4) COVID-19 virus infection SNOMED Code(s): 708797554 Code(s): U07.1 - COVID-19 Status: Acute Current Visit: No (5) Shortness of breath SNOMED Code(s): 401441423 Code(s): R06.02 - SHORTNESS OF BREATH Status: Acute Current Visit: No (6) Pneumonia due to COVID-19 virus SNOMED Code(s): 513878938493311270 Code(s): U07.1 - COVID-19; J12.82 - PNEUMONIA DUE TO CORONAVIRUS DISEASE 2019 Status: Acute Current Visit: Yes - Problem List Review Problem List Initiated/Reviewed/Updated: Yes - My Orders Last 24 Hours: My Active Orders 07/25/20 13:21 Dextromethorphan/guaiFENesin [Robitussin DM] 10 ml PO Q6H PRN 07/25/20 14:00 Sodium Chloride 0.9% [Saline Flush] 30 ml FLUSH DAILY PRN 07/26/20 06:42 PROCALCITONIN [REF] DAILY 07/26/20 09:00 Remdesivir 100 mg Sodium Chloride 0.9% [Normal Saline] 100 ml IV Q24H 07/26/20 10:11 Patient Status [ADT] Routine 07/27/20 05:11 BASIC METABOLIC PANEL,BMP [CHEM] AM CBC WITH AUTO DIFF [HEME] AM DD [D-DIMER QUANTITATIVE] [COAG] AM HEPATIC FUNCTION PANEL,[facility] [CHEM] AM 07/27/20 10:42 PROCALCITONIN [REF] DAILY 07/28/20 05:11 BASIC METABOLIC PANEL,BMP [CHEM] AM CBC WITH AUTO DIFF [HEME] AM DD [D-DIMER QUANTITATIVE] [COAG] AM HEPATIC FUNCTION PANEL,[facility] [CHEM] AM 07/28/20 10:42 PROCALCITONIN [REF] DAILY 07/29/20 05:11 BASIC METABOLIC PANEL,BMP [CHEM] AM CBC WITH AUTO DIFF [HEME] AM HEPATIC FUNCTION PANEL,[facility] [CHEM] AM 07/29/20 10:42 PROCALCITONIN [REF] DAILY 07/30/20 05:11 BASIC METABOLIC PANEL,BMP [CHEM] AM CBC WITH AUTO DIFF [HEME] AM HEPATIC FUNCTION PANEL,HFP [CHEM] AM 07/31/20 05:11 BASIC METABOLIC PANEL,BMP [CHEM] AM CBC WITH AUTO DIFF [HEME] AM - Plan Plan:: 45-year-old who presented with generalized weakness, malaise about 11-12 days following initial symptoms of Covid 19 infection he is hemodynamically stable, oxygen saturations are good. Elevated anion gap Lactic acidosis Hyperglycemia No history of diabetes might relate to starvation improved hemoglobin A1c pending sugars are likely increased due to dexamethasone Blood sugars remained in the 9220 range We likely can stop the taking them but discussed with the patient to follow-up as an outpatient periodically to evaluate for diabetes oral intake is better We'll stop IV fluids Hypokalemia Likely due to low oral intake Given IV potassium replacement improved recheck periodically Shortness of breath in the setting of Covid 19 infection Covid resp symptoms from 07/13 covid + test 07/14 Oxygen saturation is good, on RA CT chest negative for PE but showed typical covid 19 pneumonia changes these are new from prior CT 07/22/20 will cont dexamethasone started remdesivir - 07/25- will also extend resp isolation to 20 days from original test bacterial infection is less likely since the CT changes were quite typical for covid procalcitonin is low Well monitor oxygen saturation Generalized malaise, weakness adrenal insufficiency has low morning cortisol, Will continue dexamethasone now, we'll need tapering and follow up for adrenal insufficiency normal TSH blood cultures: pending History of hypertension continue lisinopril and hydrochlorothiazide Anxiety Ativan as needed DVT prophylaxis with subcutaneous heparin - monitor DDimer daily
[2020-07-26] MEDS: guaiFENesin/Dextromethorphan 100-10 MG/5 ML Soln 5 ML Cup PO PRN (17:14)
[2020-07-26] MEDS: Sodium Chloride 0.9% 10 ML Syringe FLUSH PRN ×2 (21:38→21:45)
[2020-07-26] MEDS: Dexamethasone 4 MG/ML SDV IVPUSH SCH (21:39)
[2020-07-26] MEDS: LORazepam 1 MG Tab PO PRN (21:48)
[2020-07-26] MEDS: Zolpidem 5 MG Tab PO PRN (21:48)
[2020-07-27] MEDS: Heparin Sodium 5,000 Units/ML Vial SUBCUT SCH ×3 (05:40→22:11)
[2020-07-27 07:16] LABS: ANION GAP 12.1 mEq/L (7-13); CHLORIDE,CL 100 mmol/L (98-107); SODIUM,NA 138 mmol/L (136-145)
[2020-07-27 07:33] LABS: HEMOGLOBIN A1C 5.7 % (<5.7)
[2020-07-27] MEDS: Sodium Chloride 0.9% 10 ML Syringe FLUSH PRN (09:33)
[2020-07-27] MEDS: REMDESIVIR 100 MG in Sodium Chloride 0.9% 100 ML IV SCH (09:35)
--- NOTE | 2020-07-27 10:44 | PCM.PN ---
- General Info Date of Service: 07/27/20 Admission Dx/Problem (Free Text): Admission Diagnosis/Problem Admission Diagnosis/Problem Hypokalemia, covid 19 pneumonia Subjective Update: the pressure feeling on the left side of the chest has improved Also improvement in shortness of breath. does not need oxygen No significant cough, but he says he is coughing more after Remdesivir and more in the afternoon no fever. No abdominal pain. no diarrhea - Review of Systems General: Denies: Fever, Weakness Pulmonary: Reports: Shortness of Breath Cardiovascular: Reports: Chest Pain Gastrointestinal: Denies: Abdominal Pain Neurological: Denies: Confusion - Patient Data Vitals - Most Recent: Last Vital Signs Temp 98.6 F 07/27/20 08:00 Pulse 71 07/27/20 08:00 Resp 18 07/27/20 08:00 BP 123/78 07/27/20 08:00 Pulse Ox 97 07/27/20 08:00 Weight - Most Recent: 156 lb I&O - Last 24 Hours: Intake & Output 07/26/20 07/27/20 07/27/20 22:59 06:59 14:59 Intake Total 200 450 Output Total 1 Balance 200 449 Lab Results Last 24 Hours: Laboratory Results - last 24 hr 07/26/20 07/27/20 07/27/20 Range/Units 12:24 06:35 06:35 WBC 7.7 (5.0-10.0) 10^3/uL RBC 5.22 (4.6-6.2) 10^6/uL Hgb 15.5 (14.0-18.0) g/dL Hct 44.2 (40.0-54.0) % MCV 84.7 (80-100) fL MCH 29.7 (27.0-34.0) pg MCHC 35.1 H (33.0-35.0) g/dL Plt Count 220 (150-450) 10^3/uL Neut % (Auto) 88.2 H (42.2-75.2) % Lymph % (Auto) 9.8 L (20.5-50.1) % [place] % (Auto) 1.9 L (2-8) % Eos % (Auto) 0.0 L (1.0-3.0) % Baso % (Auto) 0.1 (0.0-1.0) % D-Dimer, Quantitative 119 (0-400) ng/mL Sodium (136-145) mmol/L Potassium (3.5-5.1) mmol/L Chloride (98-107) mmol/L Carbon Dioxide (21-32) mmol/L Anion Gap (7-13) mEq/L BUN (7-18) mg/dL Creatinine (0.70-1.30) mg/dL Est Cr Clr Drug Dosing mL/min Estimated GFR (MDRD) Glucose (74-99) mg/dL POC Glucose 85 (70-105) mg/dl Hemoglobin A1c Calcium (8.5-10.1) mg/dL Total Bilirubin (0.2-1.0) mg/dL Direct Bilirubin (0.0-0.2) mg/dL Indirect Bilirubin AST (15-37) U/L ALT (16-63) U/L Alkaline Phosphatase (46-116) U/L Total Protein (6.4-8.2) g/dL Albumin (3.4-5.0) g/dL Globulin Albumin/Globulin Ratio 07/27/20 07/27/20 Range/Units 06:35 06:35 WBC (5.0-10.0) 10^3/uL RBC (4.6-6.2) 10^6/uL Hgb (14.0-18.0) g/dL Hct (40.0-54.0) % MCV (80-100) fL MCH (27.0-34.0) pg MCHC (33.0-35.0) g/dL Plt Count (150-450) 10^3/uL Neut % (Auto) (42.2-75.2) % Lymph % (Auto) (20.5-50.1) % [place] % (Auto) (2-8) % Eos % (Auto) (1.0-3.0) % Baso % (Auto) (0.0-1.0) % D-Dimer, Quantitative (0-400) ng/mL Sodium 138 (136-145) mmol/L Potassium 4.1 (3.5-5.1) mmol/L Chloride 100 (98-107) mmol/L Carbon Dioxide 30 (21-32) mmol/L Anion Gap 12.1 (7-13) mEq/L BUN 21 H (7-18) mg/dL Creatinine 0.99 (0.70-1.30) mg/dL Est Cr Clr Drug Dosing 93.08 mL/min Estimated GFR (MDRD) > 60 Glucose 111 H (74-99) mg/dL POC Glucose (70-105) mg/dl Hemoglobin A1c Cancelled 5.7 H Calcium 8.6 (8.5-10.1) mg/dL Total Bilirubin 0.5 (0.2-1.0) mg/dL Direct Bilirubin 0.1 (0.0-0.2) mg/dL Indirect Bilirubin 0.4 AST 23 (15-37) U/L ALT 72 H (16-63) U/L Alkaline Phosphatase 76 (46-116) U/L Total Protein 7.1 (6.4-8.2) g/dL Albumin 3.5 (3.4-5.0) g/dL Globulin 3.6 Albumin/Globulin Ratio 1.0 Octavio Results Last 24 Hours: Microbiology 07/24/20 20:33 Aerobic Blood Culture - Preliminary Blood - Arm, Right NO GROWTH AFTER 2 DAYS Anaerobic Blood Culture - Preliminary NO GROWTH AFTER 2 DAYS 07/24/20 20:30 Aerobic Blood Culture - Preliminary Blood - Arm, Left NO GROWTH AFTER 2 DAYS Anaerobic Blood Culture - Preliminary NO GROWTH AFTER 2 DAYS Med Orders - Current: Current Medications Acetaminophen (Tylenol) 650 mg PO Q4H PRN PRN Reason: Pain (Mild 1-3)/fever Dexamethasone (Decadron) 6 mg IVPUSH DAILY@1999 [facility] Last Admin: 07/26/20 21:39 Dose: 6 mg Documented by: Docusate Sodium (Colace) 100 mg PO BID PRN PRN Reason: Constipation Guaifenesin/Phenylephrine HCl (Robitussin Dm) 10 ml PO Q6H PRN PRN Reason: Cough Last Admin: 07/26/20 17:14 Dose: 10 ml Documented by: Heparin Sodium (Porcine) (Heparin Sodium) 5,000 units SUBCUT Q8HR [facility] Last Admin: 07/27/20 05:40 Dose: 5,000 units Documented by: Remdesivir 100 mg/ Sodium (Chloride) 100 mls @ 100 mls/hr IV Q24H [facility] Stop: 07/29/20 09:59 Last Admin: 07/27/20 09:35 Dose: 100 mls/hr Documented by: Influenza Virus Vaccine (Pharmacy To Dose - Influenza Vaccine) 1 each IM DAILY PRN PRN Reason: discharge Lorazepam (Ativan) 1 mg PO Q6H PRN PRN Reason: Anxiety Last Admin: 07/26/20 21:48 Dose: 1 mg Documented by: Ondansetron HCl (Zofran Odt) 4 mg PO Q6H PRN PRN Reason: nausea, able to take PO Ondansetron HCl (Zofran) 4 mg IVPUSH Q6H PRN PRN Reason: Nausea/Vomiting Sodium Chloride (Saline Flush) 10 ml FLUSH ASDIRECTED PRN PRN Reason: Keep Vein Open Last Admin: 07/27/20 09:33 Dose: 10 ml Documented by: Sodium Chloride (Saline Flush) 30 ml FLUSH DAILY PRN PRN Reason: Flush Zolpidem Tartrate (Ambien) 5 mg PO BEDTIME PRN PRN Reason: Sleep Last Admin: 07/26/20 21:48 Dose: 5 mg Documented by: Discontinued Medications Potassium Chloride 10 meq/ (Premix) 100 mls @ 100 mls/hr IV ONETIME ONE Stop: 07/24/20 18:21 Last Admin: 07/24/20 18:33 Dose: 100 mls/hr Documented by: Sodium Chloride (Normal Saline) 1,000 mls @ 125 mls/hr IV .BOLUS ONE Stop: 07/25/20 01:23 Last Infusion: 07/25/20 02:38 Dose: Infused Documented by: Potassium Chloride 10 meq/ (Premix) 100 mls @ 100 mls/hr IV Q2H [facility] Stop: 07/25/20 06:29 Last Admin: 07/25/20 06:40 Dose: 75 mls/hr Documented by: Potassium Chloride/Sodium Chloride (Normal Saline With 20 Meq Kcl) 1,000 mls @ 150 mls/hr IV ASDIRECTED [facility] Last Admin: 07/26/20 05:20 Dose: 150 mls/hr Documented by: Remdesivir 200 mg/ Sodium (Chloride) 250 mls @ 250 mls/hr IV ONETIME ONE Stop: 07/25/20 13:59 Last Admin: 07/25/20 13:57 Dose: 250 mls/hr Documented by: Remdesivir 100 mg/ Sodium (Chloride) 100 mls @ 100 mls/hr IV Q24H [facility] Stop: 07/29/20 09:59 Iopamidol (Isovue-370 (76%)) 100 ml IVPUSH ONETIME ONE Stop: 07/24/20 19:07 Last Admin: 07/24/20 19:23 Dose: 100 ml Documented by: - Exam Quality Assessment: No: Supplemental Oxygen General: Alert, Oriented Neck: Supple Lungs: Clear to Auscultation, Normal Respiratory Effort. No: Rales, Wheezing Cardiovascular: Regular Rate, Regular Rhythm GI/Abdominal Exam: Normal Bowel Sounds, Soft, Non-Tender Extremities: No Pedal Edema Skin: Warm, Dry Neurological: No New Focal Deficit Psy/Mental Status: Alert, Normal Affect, Normal Mood Sepsis Event Note - Evaluation Sepsis Screening Result: No Definite Risk - Focused Exam Vital Signs: Vital Signs Temp Pulse Resp BP Pulse Ox 07/27/20 08:00 98.6 F 71 18 123/78 97 07/27/20 05:37 98.1 F 69 18 138/81 97 - Problem List & Annotations (1) Hypertension SNOMED Code(s): 69693624 Code(s): I10 - ESSENTIAL (PRIMARY) HYPERTENSION Status: Acute Current Visit: Yes (2) Hyperglycemia SNOMED Code(s): 73747726 Code(s): R73.9 - HYPERGLYCEMIA, UNSPECIFIED Status: Acute Current Visit: Yes (3) Lactic acidosis SNOMED Code(s): 78346894 Code(s): E87.2 - ACIDOSIS Status: Acute Current Visit: Yes (4) COVID-19 virus infection SNOMED Code(s): 806011601 Code(s): U07.1 - COVID-19 Status: Acute Current Visit: No (5) Shortness of breath SNOMED Code(s): 923065106 Code(s): R06.02 - SHORTNESS OF BREATH Status: Acute Current Visit: No (6) Pneumonia due to COVID-19 virus SNOMED Code(s): 656358288061007166 Code(s): U07.1 - COVID-19; J12.82 - PNEUMONIA DUE TO CORONAVIRUS DISEASE 2019 Status: Acute Current Visit: Yes - Problem List Review Problem List Initiated/Reviewed/Updated: Yes - My Orders Last 24 Hours: My Active Orders 07/26/20 10:11 Patient Status [ADT] Routine 07/26/20 18:13 Isolation [COMM] Routine 07/27/20 06:35 PROCALCITONIN [REF] DAILY 07/28/20 05:11 BASIC METABOLIC PANEL,BMP [CHEM] AM CBC WITH AUTO DIFF [HEME] AM DD [D-DIMER QUANTITATIVE] [COAG] AM HEPATIC FUNCTION PANEL,HFP [CHEM] AM 07/28/20 10:42 PROCALCITONIN [REF] DAILY 07/29/20 05:11 BASIC METABOLIC PANEL,BMP [CHEM] AM CBC WITH AUTO DIFF [HEME] AM HEPATIC FUNCTION PANEL,HFP [CHEM] AM 07/29/20 10:42 PROCALCITONIN [REF] DAILY 07/30/20 05:11 BASIC METABOLIC PANEL,BMP [CHEM] AM CBC WITH AUTO DIFF [HEME] AM HEPATIC FUNCTION PANEL,HFP [CHEM] AM 07/31/20 05:11 BASIC METABOLIC PANEL,BMP [CHEM] AM CBC WITH AUTO DIFF [HEME] AM - Plan Plan:: 45-year-old who presented with generalized weakness, malaise about 11-12 days following initial symptoms of Covid 19 infection he is hemodynamically stable, oxygen saturations are good. Elevated anion gap Lactic acidosis Hyperglycemia No history of diabetes might relate to starvation improved hemoglobin A1c minimally elevated sugars are likely increased due to dexamethasone Blood sugars remained in the 90-120 range discussed with the patient to follow-up as an outpatient periodically to evaluate for diabetes Hypokalemia Likely due to low oral intake Given IV potassium replacement improved recheck periodically Shortness of breath in the setting of Covid 19 infection Covid resp symptoms from 07/13 covid + test 07/14 Oxygen saturation is good, on RA CT chest negative for PE but showed typical covid 19 pneumonia changes these are new from prior CT 07/22/20 will cont dexamethasone started remdesivir - 07/25- will also extend resp isolation to 20 days from original test bacterial infection is less likely since the CT changes were quite typical for covid procalcitonin is low Well monitor oxygen saturation Generalized malaise, weakness adrenal insufficiency has low morning cortisol, Will continue dexamethasone now, we'll need tapering and follow up for adrenal insufficiency normal TSH blood cultures: negative for now History of hypertension continue lisinopril and hydrochlorothiazide Anxiety Ativan as needed DVT prophylaxis with subcutaneous heparin - monitor DDimer daily
[2020-07-27] MEDS: guaiFENesin/Dextromethorphan 100-10 MG/5 ML Soln 5 ML Cup PO PRN (17:12)
[2020-07-27] MEDS: Dexamethasone 4 MG/ML SDV IVPUSH SCH (22:11)
[2020-07-27] MEDS: LORazepam 1 MG Tab PO PRN (22:20)
[2020-07-27] MEDS: Zolpidem 5 MG Tab PO PRN (22:21)
[2020-07-28] MEDS: Heparin Sodium 5,000 Units/ML Vial SUBCUT SCH ×3 (05:47→21:45)
[2020-07-28 06:53] LABS: ANION GAP 13.9 mEq/L (7-13); CHLORIDE,CL 100 mmol/L (98-107); SODIUM,NA 137 mmol/L (136-145)
[2020-07-28] MEDS: REMDESIVIR 100 MG in Sodium Chloride 0.9% 100 ML IV SCH (08:25)
[2020-07-28] MEDS ORDERED: FLU Vacc QS2020-21 36MOS UP/PF 60 MCG/0.5 ML Syringe IM ONE (10:15)
--- NOTE | 2020-07-28 11:33 | PCM.PN ---
- General Info Date of Service: 07/28/20 Admission Dx/Problem (Free Text): Admission Diagnosis/Problem Admission Diagnosis/Problem Hypokalemia, covid 19 pneumonia Subjective Update: the pressure feeling on the left side of the chest has further improved he is feeling that he is "turning a corner" and improving does not need oxygen No significant cough, but he says he is coughing more after Remdesivir and more in the afternoon some sputum production no fever. No abdominal pain. no diarrhea Functional Status: Reports: Tolerating Diet, Ambulating, Urinating - Review of Systems Pulmonary: Reports: Shortness of Breath (improved) Cardiovascular: Reports: Chest Pain (chest discomfort is improving) Gastrointestinal: Denies: Abdominal Pain Neurological: Denies: Confusion - Patient Data Vitals - Most Recent: Last Vital Signs Temp 98.3 F 07/28/20 08:00 Pulse 78 07/28/20 08:00 Resp 18 07/28/20 08:00 BP 120/78 07/28/20 08:00 Pulse Ox 99 07/28/20 08:00 Weight - Most Recent: 156 lb I&O - Last 24 Hours: Intake & Output 07/27/20 07/28/20 07/28/20 22:59 06:59 14:59 Intake Total 440 600 440 Balance 440 600 440 Lab Results Last 24 Hours: Laboratory Results - last 24 hr 07/28/20 07/28/20 07/28/20 Range/Units 06:23 06:23 06:23 WBC 9.9 (5.0-10.0) 10^3/uL RBC 5.34 (4.6-6.2) 10^6/uL Hgb 15.8 (14.0-18.0) g/dL Hct 44.8 (40.0-54.0) % MCV 83.9 (80-100) fL MCH 29.6 (27.0-34.0) pg MCHC 35.3 H (33.0-35.0) g/dL Plt Count 239 (150-450) 10^3/uL Neut % (Auto) 88.6 H (42.2-75.2) % Lymph % (Auto) 9.2 L (20.5-50.1) % Carver % (Auto) 2.0 (2-8) % Eos % (Auto) 0.0 L (1.0-3.0) % Baso % (Auto) 0.2 (0.0-1.0) % D-Dimer, Quantitative < 100 (0-400) ng/mL Sodium 137 (136-145) mmol/L Potassium 3.9 (3.5-5.1) mmol/L Chloride 100 (98-107) mmol/L Carbon Dioxide 27 (21-32) mmol/L Anion Gap 13.9 H (7-13) mEq/L BUN 20 H (7-18) mg/dL Creatinine 1.04 (0.70-1.30) mg/dL Est Cr Clr Drug Dosing 88.61 mL/min Estimated GFR (MDRD) > 60 Glucose 123 H (74-99) mg/dL Calcium 8.8 (8.5-10.1) mg/dL Total Bilirubin 0.5 (0.2-1.0) mg/dL Direct Bilirubin 0.1 (0.0-0.2) mg/dL Indirect Bilirubin 0.4 AST 21 (15-37) U/L ALT 70 H (16-63) U/L Alkaline Phosphatase 78 (46-116) U/L Total Protein 7.3 (6.4-8.2) g/dL Albumin 3.7 (3.4-5.0) g/dL Globulin 3.6 Albumin/Globulin Ratio 1.0 Octavio Results Last 24 Hours: Microbiology 07/24/20 20:33 Aerobic Blood Culture - Preliminary Blood - Arm, Right NO GROWTH AFTER 3 DAYS Anaerobic Blood Culture - Preliminary NO GROWTH AFTER 3 DAYS 07/24/20 20:30 Aerobic Blood Culture - Preliminary Blood - Arm, Left NO GROWTH AFTER 3 DAYS Anaerobic Blood Culture - Preliminary NO GROWTH AFTER 3 DAYS Med Orders - Current: Current Medications Acetaminophen (Tylenol) 650 mg PO Q4H PRN PRN Reason: Pain (Mild 1-3)/fever Dexamethasone (Decadron) 6 mg IVPUSH DAILY@1999 [facility] Last Admin: 07/27/20 22:11 Dose: 6 mg Documented by: Docusate Sodium (Colace) 100 mg PO BID PRN PRN Reason: Constipation Guaifenesin/Phenylephrine HCl (Robitussin Dm) 10 ml PO Q6H PRN PRN Reason: Cough Last Admin: 07/27/20 17:12 Dose: 10 ml Documented by: Heparin Sodium (Porcine) (Heparin Sodium) 5,000 units SUBCUT Q8HR [facility] Last Admin: 07/28/20 05:47 Dose: 5,000 units Documented by: Remdesivir 100 mg/ Sodium (Chloride) 100 mls @ 100 mls/hr IV Q24H [facility] Stop: 07/29/20 09:59 Last Admin: 07/28/20 08:25 Dose: 100 mls/hr Documented by: Influenza Virus Vaccine (Pharmacy To Dose - Influenza Vaccine) 1 each IM DAILY PRN PRN Reason: discharge Lorazepam (Ativan) 1 mg PO Q6H PRN PRN Reason: Anxiety Last Admin: 07/27/20 22:20 Dose: 1 mg Documented by: Ondansetron HCl (Zofran Odt) 4 mg PO Q6H PRN PRN Reason: nausea, able to take PO Ondansetron HCl (Zofran) 4 mg IVPUSH Q6H PRN PRN Reason: Nausea/Vomiting Sodium Chloride (Saline Flush) 10 ml FLUSH ASDIRECTED PRN PRN Reason: Keep Vein Open Last Admin: 07/27/20 09:33 Dose: 10 ml Documented by: Sodium Chloride (Saline Flush) 30 ml FLUSH DAILY PRN PRN Reason: Flush Zolpidem Tartrate (Ambien) 5 mg PO BEDTIME PRN PRN Reason: Sleep Last Admin: 07/27/20 22:21 Dose: 5 mg Documented by: Discontinued Medications Potassium Chloride 10 meq/ (Premix) 100 mls @ 100 mls/hr IV ONETIME ONE Stop: 07/24/20 18:21 Last Admin: 07/24/20 18:33 Dose: 100 mls/hr Documented by: Sodium Chloride (Normal Saline) 1,000 mls @ 125 mls/hr IV .BOLUS ONE Stop: 07/25/20 01:23 Last Infusion: 07/25/20 02:38 Dose: Infused Documented by: Potassium Chloride 10 meq/ (Premix) 100 mls @ 100 mls/hr IV Q2H [facility] Stop: 07/25/20 06:29 Last Admin: 07/25/20 06:40 Dose: 75 mls/hr Documented by: Potassium Chloride/Sodium Chloride (Normal Saline With 20 Meq Kcl) 1,000 mls @ 150 mls/hr IV ASDIRECTED [facility] Last Admin: 07/26/20 05:20 Dose: 150 mls/hr Documented by: Remdesivir 200 mg/ Sodium (Chloride) 250 mls @ 250 mls/hr IV ONETIME ONE Stop: 07/25/20 13:59 Last Admin: 07/25/20 13:57 Dose: 250 mls/hr Documented by: Remdesivir 100 mg/ Sodium (Chloride) 100 mls @ 100 mls/hr IV Q24H [facility] Stop: 07/29/20 09:59 Iopamidol (Isovue-370 (76%)) 100 ml IVPUSH ONETIME ONE Stop: 07/24/20 19:07 Last Admin: 07/24/20 19:23 Dose: 100 ml Documented by: - Exam General: Alert, Oriented Neck: Supple Lungs: Clear to Auscultation, Normal Respiratory Effort Cardiovascular: Regular Rate, Regular Rhythm GI/Abdominal Exam: Normal Bowel Sounds, Soft, Non-Tender Extremities: No: Pedal Edema Neurological: No New Focal Deficit Psy/Mental Status: Alert, Normal Affect, Normal Mood Sepsis Event Note - Evaluation Sepsis Screening Result: No Definite Risk - Focused Exam Vital Signs: Vital Signs Temp Pulse Resp BP Pulse Ox 07/28/20 08:00 98.3 F 78 18 120/78 99 07/28/20 05:47 98 F 81 18 123/78 97 - Problem List & Annotations (1) Hypertension SNOMED Code(s): 08667548 Code(s): I10 - ESSENTIAL (PRIMARY) HYPERTENSION Status: Acute Current Visit: Yes (2) Hyperglycemia SNOMED Code(s): 20446573 Code(s): R73.9 - HYPERGLYCEMIA, UNSPECIFIED Status: Acute Current Visit: Yes (3) Lactic acidosis SNOMED Code(s): 24866395 Code(s): E87.2 - ACIDOSIS Status: Acute Current Visit: Yes (4) COVID-19 virus infection SNOMED Code(s): 186624376 Code(s): U07.1 - COVID-19 Status: Acute Current Visit: No (5) Shortness of breath SNOMED Code(s): 164980205 Code(s): R06.02 - SHORTNESS OF BREATH Status: Acute Current Visit: No (6) Pneumonia due to COVID-19 virus SNOMED Code(s): 493361714645288219 Code(s): U07.1 - COVID-19; J12.82 - PNEUMONIA DUE TO CORONAVIRUS DISEASE 2019 Status: Acute Current Visit: Yes - Problem List Review Problem List Initiated/Reviewed/Updated: Yes - My Orders Last 24 Hours: My Active Orders 07/28/20 06:23 PROCALCITONIN [REF] DAILY 07/29/20 05:11 BASIC METABOLIC PANEL,BMP [CHEM] AM CBC WITH AUTO DIFF [HEME] AM HEPATIC FUNCTION PANEL,HFP [CHEM] AM 07/29/20 10:42 PROCALCITONIN [REF] DAILY 07/30/20 05:11 BASIC METABOLIC PANEL,BMP [CHEM] AM CBC WITH AUTO DIFF [HEME] AM HEPATIC FUNCTION PANEL,HFP [CHEM] AM 07/31/20 05:11 BASIC METABOLIC PANEL,BMP [CHEM] AM CBC WITH AUTO DIFF [HEME] AM - Plan Plan:: 45-year-old who presented with generalized weakness, malaise about 11-12 days following initial symptoms of Covid 19 infection he is hemodynamically stable, oxygen saturations are good. Elevated anion gap Lactic acidosis Hyperglycemia No history of diabetes might relate to starvation improved hemoglobin A1c minimally elevated sugars are likely increased due to dexamethasone Blood sugars remained in the 90-120 range discussed with the patient to follow-up as an outpatient periodically to evaluate for diabetes Hypokalemia Likely due to low oral intake Given IV potassium replacement resolved Shortness of breath in the setting of Covid 19 infection Covid resp symptoms from 07/13 covid + test 07/14 Oxygen saturation is good, on RA CT chest negative for PE but showed typical covid 19 pneumonia changes these are new from prior CT 07/22/20 will cont dexamethasone started remdesivir - 07/25- will also extend resp isolation to 20 days from original test date will finish remdesivir tomorrow bacterial infection is less likely since the CT changes were quite typical for covid procalcitonin was low Well monitor oxygen saturation Generalized malaise, weakness adrenal insufficiency has low morning cortisol, Will continue dexamethasone now, we'll need tapering and follow up for adrenal insufficiency normal TSH blood cultures: negative for now History of hypertension continue lisinopril and hydrochlorothiazide Anxiety Ativan as needed DVT prophylaxis with subcutaneous heparin - monitor DDimer daily - ddimer is down
[2020-07-28] MEDS: guaiFENesin/Dextromethorphan 100-10 MG/5 ML Soln 5 ML Cup PO PRN (15:54)
[2020-07-28] MEDS: LORazepam 1 MG Tab PO PRN ×2 (15:54→21:44)
[2020-07-28] MEDS: Zolpidem 5 MG Tab PO PRN (21:44)
[2020-07-28] MEDS: Dexamethasone 4 MG/ML SDV IVPUSH SCH (21:45)
[2020-07-29] MEDS: Heparin Sodium 5,000 Units/ML Vial SUBCUT SCH (05:45)
[2020-07-29 06:33] LABS: ANION GAP 11.3 mEq/L (7-13); CHLORIDE,CL 100 mmol/L (98-107); SODIUM,NA 136 mmol/L (136-145)
[2020-07-29] MEDS: REMDESIVIR 100 MG in Sodium Chloride 0.9% 100 ML IV SCH (08:30)
[2020-07-29] MEDS: Sodium Chloride 0.9% 10 ML Syringe FLUSH PRN (08:30)
--- NOTE | 2020-07-29 09:24 | PCM.DCSUM1 ---
Discharge Summary - Hospital Course Free Text/Narrative:: 45-year-old who presented with generalized weakness, malaise about 11-12 days following initial symptoms of Covid 19 infection he is hemodynamically stable, oxygen saturations are good. Elevated anion gap Lactic acidosis Hyperglycemia No history of diabetes might relate to starvation improved hemoglobin A1c minimally elevated sugars are likely increased due to dexamethasone Blood sugars remained in the 90-120 range discussed with the patient to follow-up as an outpatient periodically to evaluate for diabetes Hypokalemia Likely due to low oral intake Given IV potassium replacement resolved Shortness of breath in the setting of Covid 19 infection Covid resp symptoms from 07/13 covid + test 07/14 Oxygen saturation is good, on RA CT chest negative for PE but showed typical covid 19 pneumonia changes these are new from prior CT 07/22/20 will cont dexamethasone started remdesivir - 07/25-07/29 recommended to extend resp isolation to 20 days from original test date bacterial infection is less likely since the CT changes were quite typical for covid procalcitonin was low Generalized malaise, weakness adrenal insufficiency has low morning cortisol, Will continue dexamethasone now, we'll need tapering and follow up for adrenal insufficiency normal TSH blood cultures: negative for now History of hypertension continue lisinopril and hydrochlorothiazide Anxiety Ativan as needed Diagnosis: Stroke: No - Discharge Data Discharge Date: 07/29/20 Discharge Disposition: Home, Self-Care 01 Condition: Good - Referral to Home Health Primary Care Physician: PCP Not In Area - Discharge Diagnosis/Problem(s) (1) Hypertension SNOMED Code(s): 41846388 ICD Code: I10 - ESSENTIAL (PRIMARY) HYPERTENSION Status: Acute Current Visit: Yes (2) Hyperglycemia SNOMED Code(s): 89480346 ICD Code: R73.9 - HYPERGLYCEMIA, UNSPECIFIED Status: Acute Current Visit: Yes (3) Lactic acidosis SNOMED Code(s): 58718433 ICD Code: E87.2 - ACIDOSIS Status: Acute Current Visit: Yes (4) COVID-19 virus infection SNOMED Code(s): 746346505 ICD Code: U07.1 - COVID-19 Status: Acute Current Visit: No (5) Shortness of breath SNOMED Code(s): 194891195 ICD Code: R06.02 - SHORTNESS OF BREATH Status: Acute Current Visit: No (6) Pneumonia due to COVID-19 virus SNOMED Code(s): 667884001554405805 ICD Code: U07.1 - COVID-19; J12.82 - PNEUMONIA DUE TO CORONAVIRUS DISEASE 2019 Status: Acute Current Visit: Yes - Patient Instructions Diet: Heart Healthy Diet Activity: As Tolerated - Discharge Plan *PRESCRIPTION DRUG MONITORING PROGRAM REVIEWED*: Not Applicable *COPY OF PRESCRIPTION DRUG MONITORING REPORT IN PATIENT YENI: Not Applicable Prescriptions/Med Rec: dexAMETHasone [Dexamethasone] 6 mg PO DAILY #5 tab Aspirin [Ecotrin EC] 325 mg PO DAILY #28 tab.ec Home Medications: Home Meds Lisinopril/Hydrochlorothiazide [Lisinopril-HCTZ 10-12.5 MG] 1 tab PO DAILY 07/18/20 [History] Rosuvastatin [Crestor] 10 mg PO DAILY 07/18/20 [History] Albuterol [Take Home: Albuterol 18 GM, 1 INH Pack] 2 puff INH Q4H PRN 07/24/20 [History] Aspirin [Ecotrin EC] 325 mg PO DAILY #28 tab.ec 07/29/20 [Rx] dexAMETHasone [Dexamethasone] 6 mg PO DAILY #5 tab 07/29/20 [Rx] Oxygen Therapy Mode: Room Air Forms: ED Department Discharge Referrals: PCP,None [Ordering Only Provider] - - Discharge Summary/Plan Comment DC Time >30 min.: No - General Info Date of Service: 07/29/20 Functional Status: Reports: Pain Controlled, Tolerating Diet, Ambulating - Review of Systems General: Denies: Fever, Weakness Pulmonary: Denies: Shortness of Breath Cardiovascular: Denies: Chest Pain, Edema Neurological: Denies: Confusion - Patient Data Vitals - Most Recent: Last Vital Signs Temp 98.4 F 07/29/20 08:00 Pulse 80 07/29/20 08:00 Resp 20 07/29/20 08:00 BP 125/84 07/29/20 08:00 Pulse Ox 99 07/29/20 08:00 Weight - Most Recent: 156 lb I&O - Last 24 hours: Intake & Output 07/28/20 07/29/20 07/29/20 22:59 06:59 14:59 Intake Total 720 Balance 720 Lab Results - Last 24 hrs: Laboratory Results - last 24 hr 07/26/20 07/27/20 07/28/20 Range/Units 06:42 06:35 06:23 WBC (5.0-10.0) 10^3/uL RBC (4.6-6.2) 10^6/uL Hgb (14.0-18.0) g/dL Hct (40.0-54.0) % MCV (80-100) fL MCH (27.0-34.0) pg MCHC (33.0-35.0) g/dL Plt Count (150-450) 10^3/uL Neut % (Auto) (42.2-75.2) % Lymph % (Auto) (20.5-50.1) % Daniels % (Auto) (2-8) % Eos % (Auto) (1.0-3.0) % Baso % (Auto) (0.0-1.0) % Add Manual Diff Sodium (136-145) mmol/L Potassium (3.5-5.1) mmol/L Chloride (98-107) mmol/L Carbon Dioxide (21-32) mmol/L Anion Gap (7-13) mEq/L BUN (7-18) mg/dL Creatinine (0.70-1.30) mg/dL Est Cr Clr Drug Dosing mL/min Estimated GFR (MDRD) Glucose (74-99) mg/dL Calcium (8.5-10.1) mg/dL Total Bilirubin (0.2-1.0) mg/dL Direct Bilirubin (0.0-0.2) mg/dL Indirect Bilirubin AST (15-37) U/L ALT (16-63) U/L Alkaline Phosphatase (46-116) U/L Total Protein (6.4-8.2) g/dL Albumin (3.4-5.0) g/dL Globulin Albumin/Globulin Ratio Procalcitonin <0.05 <0.05 <0.05 ng/mL 07/29/20 07/29/20 Range/Units 06:05 06:05 WBC 7.8 (5.0-10.0) 10^3/uL RBC 5.03 (4.6-6.2) 10^6/uL Hgb 15.2 (14.0-18.0) g/dL Hct 42.9 (40.0-54.0) % MCV 85.3 (80-100) fL MCH 30.2 (27.0-34.0) pg MCHC 35.4 H (33.0-35.0) g/dL Plt Count 205 (150-450) 10^3/uL Neut % (Auto) 88.5 H (42.2-75.2) % Lymph % (Auto) 9.1 L (20.5-50.1) % Daniels % (Auto) 2.3 (2-8) % Eos % (Auto) 0.0 L (1.0-3.0) % Baso % (Auto) 0.1 (0.0-1.0) % Add Manual Diff Sodium 136 (136-145) mmol/L Potassium 4.3 (3.5-5.1) mmol/L Chloride 100 (98-107) mmol/L Carbon Dioxide 29 (21-32) mmol/L Anion Gap 11.3 (7-13) mEq/L BUN 17 (7-18) mg/dL Creatinine 1.02 (0.70-1.30) mg/dL Est Cr Clr Drug Dosing 90.34 mL/min Estimated GFR (MDRD) > 60 Glucose 131 H (74-99) mg/dL Calcium 8.7 (8.5-10.1) mg/dL Total Bilirubin 0.4 (0.2-1.0) mg/dL Direct Bilirubin 0.1 (0.0-0.2) mg/dL Indirect Bilirubin 0.3 AST 19 (15-37) U/L ALT 63 (16-63) U/L Alkaline Phosphatase 70 (46-116) U/L Total Protein 6.8 (6.4-8.2) g/dL Albumin 3.5 (3.4-5.0) g/dL Globulin 3.3 Albumin/Globulin Ratio 1.1 Procalcitonin ng/mL [facility] Results - Last 24 hrs: Microbiology 07/24/20 20:30 Aerobic Blood Culture - Preliminary Blood - Arm, Left NO GROWTH AFTER 4 DAYS Anaerobic Blood Culture - Preliminary NO GROWTH AFTER 4 DAYS 07/24/20 20:33 Aerobic Blood Culture - Preliminary Blood - Arm, Right NO GROWTH AFTER 4 DAYS Anaerobic Blood Culture - Preliminary NO GROWTH AFTER 4 DAYS Med Orders - Current: Current Medications Acetaminophen (Tylenol) 650 mg PO Q4H PRN PRN Reason: Pain (Mild 1-3)/fever Dexamethasone (Decadron) 6 mg IVPUSH DAILY@1999 [facility] Last Admin: 07/28/20 21:45 Dose: 6 mg Documented by: Docusate Sodium (Colace) 100 mg PO BID PRN PRN Reason: Constipation Guaifenesin/Phenylephrine HCl (Robitussin Dm) 10 ml PO Q6H PRN PRN Reason: Cough Last Admin: 07/28/20 15:54 Dose: 10 ml Documented by: Heparin Sodium (Porcine) (Heparin Sodium) 5,000 units SUBCUT Q8HR [facility] Last Admin: 07/29/20 05:45 Dose: 5,000 units Documented by: Remdesivir 100 mg/ Sodium (Chloride) 100 mls @ 100 mls/hr IV Q24H [facility] Stop: 07/29/20 09:59 Last Admin: 07/29/20 08:30 Dose: 100 mls/hr Documented by: Influenza Virus Vaccine (Pharmacy To Dose - Influenza Vaccine) 1 each IM DAILY PRN PRN Reason: discharge Lorazepam (Ativan) 1 mg PO Q6H PRN PRN Reason: Anxiety Last Admin: 07/28/20 21:44 Dose: 1 mg Documented by: Ondansetron HCl (Zofran Odt) 4 mg PO Q6H PRN PRN Reason: nausea, able to take PO Ondansetron HCl (Zofran) 4 mg IVPUSH Q6H PRN PRN Reason: Nausea/Vomiting Sodium Chloride (Saline Flush) 10 ml FLUSH ASDIRECTED PRN PRN Reason: Keep Vein Open Last Admin: 07/29/20 08:30 Dose: 10 ml Documented by: Sodium Chloride (Saline Flush) 30 ml FLUSH DAILY PRN PRN Reason: Flush Zolpidem Tartrate (Ambien) 5 mg PO BEDTIME PRN PRN Reason: Sleep Last Admin: 07/28/20 21:44 Dose: 5 mg Documented by: Discontinued Medications Potassium Chloride 10 meq/ (Premix) 100 mls @ 100 mls/hr IV ONETIME ONE Stop: 07/24/20 18:21 Last Admin: 07/24/20 18:33 Dose: 100 mls/hr Documented by: Sodium Chloride (Normal Saline) 1,000 mls @ 125 mls/hr IV .BOLUS ONE Stop: 07/25/20 01:23 Last Infusion: 07/25/20 02:38 Dose: Infused Documented by: Potassium Chloride 10 meq/ (Premix) 100 mls @ 100 mls/hr IV Q2H [facility] Stop: 07/25/20 06:29 Last Admin: 07/25/20 06:40 Dose: 75 mls/hr Documented by: Potassium Chloride/Sodium Chloride (Normal Saline With 20 Meq Kcl) 1,000 mls @ 150 mls/hr IV ASDIRECTED [facility] Last Admin: 07/26/20 05:20 Dose: 150 mls/hr Documented by: Remdesivir 200 mg/ Sodium (Chloride) 250 mls @ 250 mls/hr IV ONETIME ONE Stop: 07/25/20 13:59 Last Admin: 07/25/20 13:57 Dose: 250 mls/hr Documented by: Remdesivir 100 mg/ Sodium (Chloride) 100 mls @ 100 mls/hr IV Q24H [facility] Stop: 07/29/20 09:59 Iopamidol (Isovue-370 (76%)) 100 ml IVPUSH ONETIME ONE Stop: 07/24/20 19:07 Last Admin: 07/24/20 19:23 Dose: 100 ml Documented by: - Exam General: Reports: Alert, Oriented Neck: Reports: Supple Lungs: Reports: Clear to Auscultation, Normal Respiratory Effort Cardiovascular: Reports: Regular Rate, Regular Rhythm GI/Abdominal Exam: Normal Bowel Sounds, Soft, Non-Tender Neurological: Reports: No New Focal Deficit Psy/Mental Status: Reports: Alert, Normal Affect, Normal Mood
[2020-07-29] MEDS ORDERED: FLU Vacc QS2020-21 36MOS UP/PF 60 MCG/0.5 ML Syringe IM ONE (09:45)
== END 2020-07-29 10:10 | disposition home or self-care (01) | DRG 177 ==
LOC: DL.ED 15:21 → DL.MS 17:42 → UNDOADMOB 17:42 → DL.MS 19:33 → OBSVTOIN 07-26 10:11 → DL.MS 07-26 10:11
PROVIDERS: ADMIT Internal Medicine; ATTEND Internal Medicine
PROC: XW033E5 Introduction of Remdesivir Anti-infective into Peripheral Vein, Percutaneous Approach, New Technology Group 5 (ICD-10-PCS; principal; 2020-07-26)
PROC: 8E0ZXY6 Isolation (ICD-10-PCS; principal; 2020-07-26)
DX: U07.1 COVID-19 (principal); J12.82 Pneumonia due to coronavirus disease 2019; E87.2 Acidosis; E27.40 Unspecified adrenocortical insufficiency; R73.9 Hyperglycemia, unspecified; E87.6 Hypokalemia; I10 Essential (primary) hypertension; F41.9 Anxiety disorder, unspecified; E78.00 Pure hypercholesterolemia, unspecified; Z79.899 Other long term (current) drug therapy; Z79.82 Long term (current) use of aspirin
CPT/HCPCS: 36415; 71260; 80048; 80053; 80076; 81003; 82533; 82962; 83036; 83605; 83735; 84100; 84145; 84443; 84484; 85025; 85379; 85610; 85730; 86140; 87040; 90686; 93005; 96365; 96366; 96367; 96372; 96375; 96376; 99218; 99225; 99232; 99238; 99284; 99285-25; A9270-GY; G0008; G0378; J1100; J1644; J3480; J7030; J7050; Q9967

== ENCOUNTER 2022-02-12 10:16 | Emergency (ER) | payer SELFPAY ==
[2022-02-12] MEDS ORDERED: Sodium Chloride 0.9% 1,000 ML IV ONE (10:32)
[2022-02-12] MEDS ORDERED: Sodium Chloride 0.9% 10 ML Syringe FLUSH PRN (10:32)
[2022-02-12] MEDS ORDERED: Ondansetron 4 MG/2 ML SDV IV ONE (10:32)
[2022-02-12 11:16] LABS: ANION GAP 12.9 mEq/L (7-13)
== END 2022-02-12 12:38 | disposition home or self-care (01) ==
LOC: MERGE 10:16 → DL.ED 10:16
DX: N17.9 Acute kidney failure, unspecified (principal); E86.0 Dehydration; Z86.16 Personal history of COVID-19
CPT/HCPCS: 36415; 74176; 80053; 81001; 82150; 83605; 85025; 87086; 96361; 96374; 99284; J2405; J3490; J7030